=== PATIENT | male | born 1995 | race Caucasian/White ===

== ENCOUNTER 2023-09-03 11:20 | Emergency (ER) | payer OTHER, SELFPAY ==
[2023-09-03 11:31] VITALS: BMI 30.7
[2023-09-03 11:31] LABS: Glucose - Point of Care 575 mg/dl (70-99)
--- NOTE | 2023-09-03 11:37 | ED.GENMED ---
History of Present Illness
General
Chief Complaint: Blood Sugar Problem
Time Seen by Provider: 09/03/23 11:27
History of Present Illness
History of Present Illness:
28-year-old male with history of insulin-dependent diabetes, PTSD, OCD, and polysubstance abuse presents to the emergency department via EMS due to elevated blood sugar. He was apparently arrested this morning and his Accu-Chek read high. He does
endorse missing his dose of insulin today but notes that his Dexcom readings have been elevated over the past several days. Reports he has been compliant with his insulin. Endorses increased thirst and urination, denies any abdominal pain, nausea,
vomiting, or fevers. Denies any suicidal or homicidal ideation.
Past History
Past History
ED Past Medical History: IDDM, Psychiatric and Other (peripheral edema)
ED Past Surgical History: None
Patient has exhibited threatening behavior?: No
Social History
Tobacco: Smoker (1 PPD)
Alcohol: None
Drug: Marijuana, Cocaine (Crack cocaine) and Narcotics
Personal: Single
Living: with family
Employment: Not employed
Review of Systems
Review of Systems
Allergies reviewed?: Yes
All Other Systems: ROS reviewed and negative except as documented in HPI and ROS
Phy Exam
Physical Exam
Physical Exam:
GEN: Well appearing, NAD, WDWN
Eyes: PERRLA, EOMs intact, no scleral icterus
HENT: NCAT, oral mucosa dry, no JVD
Lungs: CTAB, no wheezes, rales, rhonchi, normal chest wall excursion
Cardiac: RRR, no M/R/G, no peripheral edema. Radial pulses 2+ bilat
Abdomen: S, NT, ND, NABS, no masses or hepatosplenomegaly
Neuro: AO x 3
MSK: No gross deformity or ecchymosis. No edema. No digital clubbing
Skin: No rashes, petechiae. Normal color, no pallor or jaundice.
Psych: Calm, cooperative, proper hygiene
Course
Orders/Labs/Results
Orders:
Orders
09/03/23 11:35
B-Hydroxybutyrate Urgent
Comment: ADD ON
Complete Blood Count/With Diff Urgent
Comprehensive Metabolic Panel Urgent
Venous Blood Gas Urgent
%Oxygen/Room Air: 99
Comment: Hyperglycemic
09/03/23 11:43
Add On- LAB Urgent
Tests Added?: beta hydroxybutyrate
Urinalysis Reflex To Culture Urgent
09/03/23 12:16
0.9% Sodium Chloride 1000 ml [Nss] 1,000 ml IV BOLUS
Insulin Aspart [NOVOLOG vial] 15 units SC NOW STA
Abnormal Lab Results
09/03/23 09/03/23
11:29 11:35
Abs Immat Gran (auto) 0.1 H 10^3/uL
(0-0.05)
Absolute Neuts (auto) 6.8 H 10^3/uL
(1.4-6.5)
Immature Gran % 0.6 H %
(0-0.5)
Lymphocytes % 19.8 L %
(20.5-51.1)
VBG pO2 72 H mmHg
(30-50)
VBG HCO3 20.6 L mmol/L
(22-27)
Sodium 133 L mmol/L
(135-145)
Carbon Dioxide 18 L mmol/L
(22-30)
Creatinine 0.6 L mg/dL
(0.7-1.3)
Glucose 619 H* mg/dl
(70-99)
Alkaline Phosphatase 185 H U/L
(38-126)
B-Hydroxybutyrate 1.83 H mmol/L
(0.02-0.27)
POC Glucose 575 H* mg/dl
(70-99)
09/03/23 11:35
09/03/23 11:35
Vital Signs
Initial and Last Documented VS:
Initial Vital Signs
Temp Pulse Resp BP Pulse Ox
98.3 F 74 18 121/85 99
09/03/23 11:38 09/03/23 11:38 09/03/23 11:38 09/03/23 11:38 09/03/23 11:38
Last Documented Vital Signs
Temp Pulse Resp BP Pulse Ox
98.3 F 74 18 121/85 99
09/03/23 11:38 09/03/23 11:38 09/03/23 11:38 09/03/23 11:38 09/03/23 11:38
MDM/Problems Addressed
MDM/Problems Addressed:
Patient not in DKA but certainly trending that way with the decrease in bicarbonate and elevated glucose. Unfortunately did receive only a small volume of IV fluids and no insulin. Unfortunately this patient eloped prior to any further treatment,
his father was updated
*Critical Care Note
Total Time (30-74mins, 75-104mins- exclusive of procedures): Not Applicable
Update Note
Update Note:
1218: Went to reassess pt, he eloped, IV catheter lying on bed with blood on sheets. Pt not located in restroom. Although his glucose is markedly elevated, no evidence of DKA although certainly trending that way with decreased serum bicarbonate. He
was alert and oriented fully, no grounds to contact PD
1225: Called pt's father Elio Vizcaino, updated regarding pt elopement
ED Attending Note
-
Portions of this chart may have been created with voice recognition software.� Occasional wrong word or��sound alike� substitutions may have occurred due to the inherent limitations of voice recognition software.
Discharge Plan
Departure
Patient Disposition: Elopement
Date of Disposition: 09/03/23
Time of Disposition: 12:23
Prescriptions:
No Action
alprazolam 1 mg Tablet
2 mg PO DAILY
Patient Comments:
04/27/23 Filled on 04/24/23 #90
sertraline 100 mg Tablet
100 mg PO DAILY
topiramate 200 mg Tablet
200 mg PO DAILY
topiramate 200 mg Tablet
100 mg PO DAILY@1400
topiramate 100 mg Tablet
100 mg PO HSPRN PRN (Reason: neurological condition )
insulin lispro [Humalog KwikPen Insulin] 100 unit/mL Insulin Pen
0 unit SC ACHS
Rx Instructions:
base on carbs per father bs [id number]
aripiprazole 5 mg Tablet
5 mg PO UD
Rx Instructions:
as per father take 5mg for 3 days then increase 10mg daily there after
alprazolam [Xanax] 1 mg Tablet
1 mg PO DAILY@1400
insulin glargine [Basaglar KwikPen U-100 Insulin] 100 unit/mL (3 mL) Insulin Pen
50 unit SC HS
methadone 10 mg/mL Concentrate
130 mg PO DAILY
Patient Comments:
[facility] [phone] [facility]
quetiapine 100 mg Tablet
100 mg PO .[id number] Qty: 0 0RF
Rx Instructions:
taper as planned prior
Referrals:
NONE,* [Family Provider] -
Interventions
Interventions:
*Risk Screen - Suicide Last Done: 09/03/23 11:38
*ED COVID-19 Vaccine History Last Done: 09/03/23 11:38
ED- Neurological Assessment Last Done: 09/03/23 11:38
[2023-09-03 11:38] VITALS: BP 121/85
[2023-09-03 11:41] LABS: Venous Blood Gas B.E. -5.2 mmol/L (-4 to +4); Venous Blood Gas HCO3 20.6 mmol/L (22-27); Venous Blood Gas O2 Sat % 96.4 %; Venous Blood Gas pCO2 40 mmHg (35-48); Venous Blood Gas pH 7.32 (7.32-7.43); Venous Blood Gas pO2 72 mmHg (30-50)
[2023-09-03 11:43] LABS: % Basophils 0.9 % (0-2); % Eosinophils 1.3 % (0-6); % Immature Granulocytes 0.6 % (0-0.5); % Lymphocytes 19.8 % (20.5-51.1); % Monocytes 4.4 % (1.7-9.3); Absolute Basophils 0.1 10^3/uL (0-0.2); Absolute Eosinophils 0.1 10^3/uL (0-0.7); Absolute Immature Granulocytes 0.1 10^3/uL (0-0.05); Absolute Lymphocytes 1.8 10^3/uL (1.2-3.4); Absolute Monocytes 0.4 10^3/uL (0.1-0.6); Absolute Neutrophils 6.8 10^3/uL (1.4-6.5); Hemoglobin 14.3 g/dL (13.0-18.0); Mean Corpuscular Hgb 28.5 pg (27.0-31.0); Mean Corpuscular Volume 83.8 fL (80.0-94.0); Mean Platelet Volume 8.6 fL (7.4-10.4); Nucleated Red Blood Cells % 0 % (-); Platelet Count 378 10^3/uL (130-400); Red Blood Cell Count 5.01 10^6/uL (4.70-6.10); Red Cell Dist. Width 11.9 % (11.5-14.5); White Blood Cell Count 9.3 10^3/uL (4.8-10.8)
[2023-09-03 12:11] LABS: ALT (SGPT) 18 U/L (0-50); AST (SGOT) 24 U/L (17-59); Albumin 4.2 g/dl (3.5-5.0); Alkaline Phosphatase 185 U/L (38-126); Blood Urea Nitrogen 19 mg/dl (9-20); Calcium 9.1 mg/dl (8.4-10.2); Carbon Dioxide 18 mmol/L (22-30); Chloride 105 mmol/L (98-107); Estimated Creatinine Clearance > 125 ml/min; Glucose 619 mg/dl (70-99); Potassium 4.1 mmol/L (3.5-5.1); Sodium 133 mmol/L (135-145); Total Bilirubin 0.5 mg/dl (0.2-1.3); Total Protein 7.1 g/dl (6.3-8.2); eGFR > 60.00
[2023-09-03 12:29] LABS: B-Hydroxybutyrate 1.83 mmol/L (0.02-0.27)
== END 2023-09-03 13:11 | disposition left against medical advice (07) ==
LOC: EMR 11:20
PROVIDERS: EMERGENCY PHYSICIAN Emergency Medicine
DX: R45.1 Restlessness and agitation (principal); E11.65 Type 2 diabetes mellitus with hyperglycemia; F17.210 Nicotine dependence, cigarettes, uncomplicated
CPT/HCPCS: 99283; 80053; 82010; 82805; 82962; 85025

== ENCOUNTER 2024-05-01 11:37 | Inpatient (IN) | payer OTHER, SELFPAY ==
[2024-05-01] VITALS (25 sets, daily range): BP systolic 108–150; BP diastolic 54–124; BMI 30.1
--- NOTE | 2024-05-01 08:25 | ED.GENMED ---
History of Present Illness
General
Chief Complaint: Abdominal Symptoms
Source: patient and records
Exam Limitations: none
Time Seen by Provider: 05/01/24 08:08
Nursing documentation reviewed up to this point in time: agreed with
History of Present Illness
History of Present Illness:
Patient is a 28-year-old male history of type 1 diabetes who presents to the emergency department stating he has ketones in his blood with nausea and vomiting for the past 2 to 3 days. Patient had been doing crack and meth during that time.
Patient is on chronic methadone maintenance. Patient takes NovoLog for his diabetes. Patient denies fever or chills. Patient denies any recent illness or injuries. Patient does have back pain and neck pain. This is more chronic in nature.
Patient denies fever but admits to chills.
Past History
Past History
ED Past Medical History: IDDM, Psychiatric and Other (peripheral edema)
ED Past Surgical History: None
Patient has exhibited threatening behavior?: No
Social History
Tobacco: Smoker (1 PPD)
Alcohol: None
Drug: Marijuana, Cocaine (Crack cocaine) and Narcotics
Personal: Single
Living: with family
Employment: Not employed
Review of Systems
Review of Systems
All Other Systems: ROS reviewed and negative except as documented in HPI and ROS
Constitutional: Reports fatigue and chills; Denies fever
EENT: Reports no symptoms
Respiratory: Reports no symptoms
Cardiac: Reports no symptoms
ABD/GI: Reports nausea, vomiting and anorexia
: Reports no symptoms
Musculoskeletal: Reports neck pain and back pain
Skin: Reports no symptoms
Neurological: Reports no symptoms
Hematologic/Lymphatic: Reports no symptoms
Phy Exam
Physical Exam
Physical Exam:
Physical Exam
General: significant distress, alert and appropriate, well nourished, dry mucous membranes
HENT: Normocephalic, supple with no lymphadenopathy, no thyromegaly
Eyes: Clear sclera, conjuctiva without injection
Heart: Regular rhythm and rate. No S3, S4. No murmur.
Lungs: No respiratory distress, no stridor, lung sounds clear and equal bilaterally
Abdomen: Soft, nontender, no organomegaly, no CVA tenderness, BS good
Neuro: Alert and oriented x 3, CN II - XII intact, no motor focality, no cerebellar dysfunction
Skin: no rash
Psychiatric: well kept. interactive and cooperative. Anxious
Extremities: No edema, cyanosis, tenderness
Course
Orders/Labs/Results
Orders:
Orders
05/01/24 08:20
B-Hydroxybutyrate Urgent
Complete Blood Count/With Diff Urgent
Comprehensive Metabolic Panel Urgent
Magnesium Urgent
Comment: ADD ON
Urinalysis Reflex To Culture Urgent
Date Specimen was Collected: 05/01/24
Time Specimen was Collected: 08:16
0.9% Sodium Chloride 1000 ml [Nss] 1,000 ml IV BOLUS
Diphenhydramine [Benadryl] 25 mg IV NOW STA
Prochlorperazine [Compazine] 10 mg IV NOW STA
05/01/24 08:21
Electrocardiogram (*1) Urgent
Reason for Study: Fatigue / Weakness
Cardiac Monitoring- Treatment ONCE
EKG- Treatment ONCE
05/01/24 09:37
Add On- LAB Urgent
Tests Added?: magnesium
Bedside Glucose- Treatment Q1H
IV Insert/Care/Rem.- Treatment PRN
05/01/24 09:45
Basic Metabolic Panel Q2H
05/01/24 11:45
Basic Metabolic Panel Q2H
05/01/24 13:45
Basic Metabolic Panel Q2H
Abnormal Lab Results
05/01/24
08:20
WBC 12.8 H 10^3/uL
(4.8-10.8)
Plt Count 431 H 10^3/uL
(130-400)
Abs Immat Gran (auto) 0.1 H 10^3/uL
(0-0.05)
Absolute Neuts (auto) 8.7 H 10^3/uL
(1.4-6.5)
Absolute Monos (auto) 0.8 H 10^3/uL
(0.1-0.6)
Immature Gran % 0.9 H %
(0-0.5)
Carbon Dioxide 10 L* mmol/L
(22-30)
Glucose 525 H* mg/dl
(70-99)
AST 77 H U/L
(17-59)
Alkaline Phosphatase 202 H U/L
(38-126)
Urine Ketones 3+ A
(Negative)
Urine Glucose 3+ A
(Negative)
B-Hydroxybutyrate > 6.00 H mmol/L
(0.02-0.27)
05/01/24 08:20
Vital Signs
Initial and Last Documented VS:
Initial Vital Signs
BP
148/82
05/01/24 08:07
Last Documented Vital Signs
Pulse Resp BP Pulse Ox
83 14 148/82 99
05/01/24 08:45 05/01/24 08:45 05/01/24 08:07 05/01/24 08:45
*Pulse Oximetry
Patient hypoxic: no
*EKG
Interpreted by ED Provider?: Yes
EKG Intrepretation Date: 05/01/24
EKG Intrepretation Time: 09:34
Interpretation: abnormal
Comparison EKG: changes noted
Heart Rate: 81
Rate: normal
Rhythm: sinus
[place]: normal axis
Interval: normal TX interval and long QT
QRS Pattern: normal QRS
Ischemia: no ischemia
*[employer] Student Coordinator Interpretation
Rate: normal
Interpretation: normal
Heart Rate: 80
Rhythm: sinus
*Critical Care Note
Total Time (30-74mins, 75-104mins- exclusive of procedures): 45 minutes
Update Note
Update Note:
Patient is extremely hostile to staff cursing them out. Patient was repeatedly asked not to curse. Patient is demanding to go home. Patient understands that he could due to his diabetic ketoacidosis. Patient still wants to leave.
Patient spoke with his father and is now wanting to stay. Patient will require second IV.
ED Attending Note
-
Portions of this chart may have been created with voice recognition software.� Occasional wrong word or��sound alike� substitutions may have occurred due to the inherent limitations of voice recognition software.
Discharge Plan
Departure
Patient Disposition: Admit
Date of Disposition: 05/01/24
Time of Disposition: 09:35
Admit to: ICU
Admit to doctor: Hospitalist
Presentation/result/management discussed w/ accepting MD/DO: Hospitalist
Patient with high blood pressure during this ER visit?: Yes
Condition: Serious
Covid-19: Not Applicable
Discharge Problem:
DKA, type 1
Instructions: [place] Diet, Diabetic Ketoacidosis (DC)
Prescriptions:
New
ondansetron 8 mg tablet,disintegrating
8 mg PO TID PRN (Reason: nausea and vomiting) Qty: 20 0RF
No Action
alprazolam 1 mg Tablet
2 mg PO DAILY
Patient Comments:
04/27/23 Filled on 04/24/23 #90
sertraline 100 mg Tablet
100 mg PO DAILY
topiramate 200 mg Tablet
200 mg PO DAILY
topiramate 200 mg Tablet
100 mg PO DAILY@1400
topiramate 100 mg Tablet
100 mg PO HSPRN PRN (Reason: neurological condition )
insulin lispro [Humalog KwikPen Insulin] 100 unit/mL Insulin Pen
0 unit SC ACHS
Rx Instructions:
base on carbs per father bs [id number]
aripiprazole 5 mg Tablet
5 mg PO UD
Rx Instructions:
as per father take 5mg for 3 days then increase 10mg daily there after
alprazolam [Xanax] 1 mg Tablet
1 mg PO DAILY@1400
insulin glargine [Basaglar KwikPen U-100 Insulin] 100 unit/mL (3 mL) Insulin Pen
50 unit SC HS
methadone 10 mg/mL Concentrate
130 mg PO DAILY
Patient Comments:
[facility] [phone] [facility]
quetiapine 100 mg Tablet
100 mg PO .[id number] Qty: 0 0RF
Rx Instructions:
taper as planned prior
Referrals:
NONE,* [Family Provider] -
Activity Restrictions/Additional Instructions:
Make sure to see your physician as soon as possible. You are welcome back here you are have the possibility of due to your diabetic ketoacidosis. Make sure to drink plenty of fluids and take your insulin as directed. Make sure to drink
plenty of fluids.
Interventions
Interventions:
*Risk Screen - Suicide Last Done: 05/01/24 08:12
*General Assessment Last Done: 05/01/24 08:12
*Neglect/Abuse Screening Last Done: 05/01/24 08:12
*ED COVID-19 Vaccine History Last Done: 05/01/24 08:11
Discharge Date and Time
Print Language: GERMAN
[2024-05-01] MEDS: BENADRYL 25 MG IV (08:28)
[2024-05-01] MEDS: NSS 1000 IV (08:29)
[2024-05-01] MEDS: COMPAZINE 10 MG IV (08:29)
[2024-05-01 08:42] LABS: % Basophils 0.9 % (0-2); % Eosinophils 1.6 % (0-6); % Immature Granulocytes 0.9 % (0-0.5); % Lymphocytes 22.6 % (20.5-51.1); Absolute Basophils 0.1 10^3/uL (0-0.2); Absolute Eosinophils 0.2 10^3/uL (0-0.7); Absolute Immature Granulocytes 0.1 10^3/uL (0-0.05); Absolute Lymphocytes 2.9 10^3/uL (1.2-3.4); Absolute Monocytes 0.8 10^3/uL (0.1-0.6); Absolute Neutrophils 8.7 10^3/uL (1.4-6.5); Hemoglobin 14.8 g/dL (13.0-18.0); Mean Corp Hgb Conc. 33.6 g/dL (33.0-37.0); Mean Corpuscular Hgb 30.1 pg (27.0-31.0); Mean Corpuscular Volume 89.6 fL (80.0-94.0); Mean Platelet Volume 8.4 fL (7.4-10.4); Nucleated Red Blood Cells % 0 % (-); Platelet Count 431 10^3/uL (130-400); Red Blood Cell Count 4.91 10^6/uL (4.70-6.10); Red Cell Dist. Width 12.9 % (11.5-14.5); White Blood Cell Count 12.8 10^3/uL (4.8-10.8)
[2024-05-01 09:16] LABS: Urine Albumin Negative (Neg - Trace); Urine Bilirubin Negative (Negative); Urine Character Clear (Clear); Urine Color Straw; Urine Glucose 3+ (Negative); Urine Ketone 3+ (Negative); Urine Leukocyte Negative (Negative); Urine Nitrite Negative (Negative); Urine Occult Blood Negative (Negative); Urine Urobilinogen Negative (Neg - 1+)
[2024-05-01 09:20] LABS: ALT (SGPT) 39 U/L (0-50); AST (SGOT) 77 U/L (17-59); Albumin 4.9 g/dl (3.5-5.0); Alkaline Phosphatase 202 U/L (38-126); B-Hydroxybutyrate > 6.00 mmol/L (0.02-0.27); Blood Urea Nitrogen 11 mg/dl (9-20); Calcium 9.7 mg/dl (8.4-10.2); Carbon Dioxide 10 mmol/L (22-30); Chloride 102 mmol/L (98-107); Estimated Creatinine Clearance > 125 ml/min; Glucose 525 mg/dl (70-99); Potassium 4.7 mmol/L (3.5-5.1); Sodium 139 mmol/L (135-145); Total Bilirubin 0.9 mg/dl (0.2-1.3); Total Protein 7.6 g/dl (6.3-8.2); eGFR > 60.00
[2024-05-01 09:53] LABS: Magnesium 1.8 mg/dl (1.6-2.3)
[2024-05-01] MEDS: ZOFRAN 4 MG IV (10:26)
[2024-05-01] MEDS: ATIVAN 1 MG IV (10:26)
--- NOTE | 2024-05-01 10:57 | PHANOTE ---
med rec note0 patient unable to answer questions at this time, patient has pharmacy records we used, plus pdmp. called office at [phone], also called office at [phone], spoke to danny office with limited
information they only fill 3 of patient medications. patient has no records of insulin being filled.
[2024-05-01] MEDS: 0.45% NACL with KCL 20 MEQ 1000 IV (11:10)
--- NOTE | 2024-05-01 11:10 | CM ---
Addendum entered by Ivette Martinez 05/01/24 12:05:
Here for DKA with severe metabolic ketoacidosis. Per hospialist's note: 'Suspect secondary to insulin noncompliance as well as nausea and vomiting related to substance abuse.'
Original Note:
CM reviewed chart. Attempted to assess elainetent, but he is thriving, yelling, screaming and crying due to pain.
--- NOTE | 2024-05-01 11:32 | HPS.HSE ---
Family Physician
-
Family Physician: * NONE
Chief Complaint
-
Pain all over and distress.
History of Present Illness
Patient is a 28 years old male with type 1 diabetes, polysubstance abuse disorder who presents to the emergency room after few days of using crack cocaine later developing persistent nausea and vomiting. Patient is not clear on his insulin
administration. In emergency room patient was found to be in distress with severe anxiety and agitation complaining of pain all over the body. Further evaluation consistent with severe metabolic acidosis secondary to DKA. Patient complains of
persistent nausea and vomiting, low oral intake. Denies any abdominal pain other than he complains of pain all over the body. Denies any respiratory or urinary symptoms.
Medical History
Past Medical History
Past Medical History: Reports IDDM and Other (Polysubstance abuse)
Past Surgical History: Reports None
Social History
Alcohol: None
Drug: Cocaine (Crack cocaine)
Personal: Single
Living: With Family
Family History
Family History: Not pertinent
Allergies / Home Medications
Allergies reflects when Allergies were last updated in [facility] [facility].
Home Medications with original date entered in [employer]
Allergy/Medication List:
Pending medication reconciliation
Review of Systems
-
A 12 point ROS was completed and negative except as noted: Yes
Physical Exam
Vital Signs
Vital Signs
Pulse Resp BP Pulse Ox
83 14 148/82 99
05/01/24 08:45 05/01/24 08:45 05/01/24 08:07 05/01/24 08:45
Physical Exam
General: Appears in Distress and Other (Disheveled)
HEENT: Atraumatic
Cardiac: S1/S2 and Regular Rhythm
GI: Soft and Non Tender
Genito-urinary: Deferred by me
Neuro: Awake, Alert, Oriented and AO x 3
Psych: Agitated and Anxious
Laboratory Results
-
05/01/24 08:20
Laboratory Results
Total Bilirubin 0.9 mg/dl (0.2-1.3) 05/01/24 08:20
AST 77 U/L (17-59) H 05/01/24 08:20
ALT 39 U/L (0-50) 05/01/24 08:20
Alkaline Phosphatase 202 U/L (38-126) H 05/01/24 08:20
Impression/Plan
-
IMPRESSION:
Diabetic ketoacidosis.
Type 1 diabetes
Polysubstance abuse including opiate abuse on methadone
PLAN:
Critically ill.
Admit to ICU.
DKA with severe metabolic ketoacidosis. Anion gap 27.
Suspect secondary to insulin noncompliance as well as nausea and vomiting related to substance abuse.
Start insulin drip
Hourly blood glucose monitoring.
Serial BMP monitoring for anion gap/potassium/phosphorus
Aggressive hydration with isotonic solution.
Update hemoglobin A1c
Diabetic nurse practitioner consultation.
Polysubstance abuse
Including opiate abuse on methadone
Crack cocaine.
At risk for withdrawal.
Currently agitated and anxious.
Continue methadone 130 mg daily.
Continue Klonopin with addition of IV lorazepam for severe agitation.
Continue Topamax and Abilify
Psychiatry consultation.
Full medication reconciliation pending
DVT prophylaxis/Levaquin
Full code.
[2024-05-01 11:38] LABS: Glucose - Point of Care 494 mg/dl (70-99)
[2024-05-01] MEDS: NOVOLIN R INSULIN INFUSION 100 IV ×2 (11:38→13:07)
[2024-05-01 12:07] LABS: Blood Urea Nitrogen 13 mg/dl (9-20); Calcium 9.8 mg/dl (8.4-10.2); Carbon Dioxide < 5 mmol/L (22-30); Chloride 106 mmol/L (98-107); Estimated Creatinine Clearance > 125 ml/min; Glucose 528 mg/dl (70-99); Potassium 4.9 mmol/L (3.5-5.1); Sodium 138 mmol/L (135-145); eGFR > 60.00
--- NOTE | 2024-05-01 12:28 | PTCARENOTE ---
Received pt from ED, pulled over to bed. Pt sleeping, difficult to arouse then drowsy and angry when awake. Poor historian, falling asleep between questions, unable to answer questions. Oriented to self and that he's in the hospital. VSS. RR 20's.
NSR on monitor. 99% on RA. LSCTA. 1/2 NS w/ 20mEq KCL runing at 250/hr. Insulin gtt A 9.8/hr, BS to be checked @ 1230, see MAR.
[2024-05-01 12:42] LABS: Glucose - Point of Care 369 mg/dl (70-99)
--- NOTE | 2024-05-01 12:42 | CON.INTV ---
Consultation
Consultation Request
Date/Time Consultation Requested: 05/01/2024 - 1206
Date/Time Consultation Performed: 05/01/2024 - 1233
Requesting Provider: Dr. Gregorio
Performing Provider: Dr. Alvares
Reason for Consultation: DKA
Medical History
-
Chief Complaint: Nausea/vomiting and feeling unwell
History of Present Illness:
28-year-old male active tobacco smoker with a past medical history of substance abuse disorder (opioids, amphetamines/methamphetamines), DM type I, history of Lyme disease, depression and anxiety who presents with nausea/vomiting and general
malaise. History obtained from the mother as patient is sedated when I saw him. He has been on a binge for the last 3 days using crack + meth. He has not been using his insulin. Per the patient's PCP (last seen on 03/14/[address] Tran) he is
supposed be on 55 units Lantus nightly and NovoLog prn (usually between 100-120 units daily), and also has a Mitesh continuous glucometer that he uses. He is noncompliant with his insulin as he does not always use it. He was following with
[facility] with endocrine but he is out of network and is trying to find a new legal services manager. He does have a history of fentanyl abuse + cocaine abuse. He has been in remission for over a year and goes to rehab. He apparently gets methadone 130 mg
daily through [facility]. Usually smokes 1 pack/day for the last 10-15 years however lately due to rehab he has been smoking 2-2.5 packs/day. He recently met somebody through his rehab who needed transportation and seems
that he relapsed because of this encounter. Per the mother, the patient has frequent outburst where he is either angry or he is crying. The patient has been out of contact with his mother for the last 3 days but then today had worsening
nausea/vomiting and then came here to the ER for further evaluation. In the ER he was afebrile to 98.8 �F, heart rate 78, breathing at 17 breaths/min, BP 140/82 and saturating 99% on room air. Labs showed leukocytosis of 12.8, Hb 14.8, platelet
count 431, serum bicarbonate level <5, anion gap 27, glucose 528 (via chemistry), AST 77, ALP 202, UA with +3 ketones with no signs of UTI, and beta-hydroxybutyrate elevated at >6. He was given IVF with 1 L NS 09%, Compazine, Zofran, Benadryl,
Ativan 1 mg, and then started on insulin drip with IVF with 1/2 NS-20 mEq KCl. He was transferred to the ICU for further care and rag willow operator services consulted for additional management/recommendations.
When I saw the patient he was resting in bed, sedated, arousable with tactile stimulation but not answering my questions. Mother, Trang, at bedside and all questions were answered. He is currently on insulin drip at 6 units/hr and 1/2-NS-20mEq KCl
at 150 cc/hr. Last POCT glucose was 369 at approximately 12:30 PM. The mother is very overwhelmed with the whole situation with her son as he has been struggling with drug use for many years, he was doing well for some time, even being sober for
over a year, however for the last 72 hours he has been on a continuous binge of cocaine, crack, and meth. He met somebody had his rehab recently who needed a ride and unfortunately relapsed after meeting this new person. He has not been using his
insulin although he does have a glucometer that he wears, and he is not always compliant with his insulin at home. He previously was addicted to fentanyl but now he takes methadone and this seems to be helping and he is doing well on that. She
swears that he does not drink alcohol at all. He does have a medical card for marijuana. He is currently smoking 2-2.5 packs/day but he has been smoking totally for about 15 years, predominantly 1 pack/day. She is requesting help at home as she
feels that she does not have enough assistance given her son's psychiatric and medical conditions. She denies any recent travel for him, recent sick contacts but her recent history of her son is limited as he was out of contact for the last 72
hours prior to arrival.
PMHx: DM type I, opioid use disorder on chronic methadone, major depressive disorder, history of Lyme disease, OCD
PSHx: Non-contributory
Past Medical History
Past Medical History: Other (Above as per HPI)
Past Surgical History: Other (Above as per HPI)
Social History
Tobacco: Smoker (Currently smoking 2-2.5 PPD, however mainly was smoking 1 PPD x 15 years)
Alcohol: None
Drug: Cocaine and Narcotics (Previous fentanyl; currently using meth)
Personal: Single
Living: With Family (Mother)
Family History
Family History: Cancer (Paternal grandmother: Breast cancer), Diabetes (Paternal grandfather), Hypertension (Father + paternal grandfather) and Other (Mother: Wiley's disease, depression, anxiety, vertigo; paternal grandfather: Small strokes)
Allergies / Home Medications
Allergies
Allergy/AdvReac Type Severity Reaction Status Date / Time
No Known Allergies Allergy Verified 05/01/24 08:11
Home Medications
�Medication �Instructions �Recorded �Confirmed �Last Taken �Type
alprazolam 1 mg tablet 2 mg PO DAILY anxiety 04/27/23 04/28/23 Unknown History
aripiprazole 5 mg tablet 10 mg PO DAILY Mental 04/27/23 04/28/23 Unknown History
Health/Anxiety
insulin lispro 100 unit/mL 0 unit SC ACHS Diabetes 04/27/23 04/28/23 Unknown History
subcutaneous pen (Humalog KwikPen
(U-100) Insulin)
sertraline 100 mg tablet 100 mg PO HS Mental Health/Anxiety 04/27/23 04/28/23 Unknown History
topiramate 100 mg tablet (Topamax) 300 mg PO HS 04/27/23 04/28/23 Unknown History
alprazolam 1 mg tablet (Xanax) 10 mg PO DAILY@1400 anxiety 04/28/23 04/28/23 Unknown History
insulin glargine 100 unit/mL (3 50 unit SC HS Diabetes 04/28/23 04/28/23 04/27/23 History
mL) subcutaneous pen (Basaglar
KwikPen U-100 Insulin)
methadone 10 mg/mL oral concentrate 130 mg PO DAILY Substance use 04/30/23 05/01/24 04/26/23 10:23 History
disorder
clonazepam 1 mg tablet 1 mg PO UD PRN withdraw symptoms 05/01/24 Unknown History
Review of Systems
-
Unable to Obtain full review of systems at this time due to: Acuity
Vitals / Labs / Diagnostic Testing
Vital Signs
Temp Pulse Resp BP Pulse Ox
98.8 F 96 32 150/84 99
05/01/24 12:16 05/01/24 11:45 05/01/24 11:45 05/01/24 11:03 05/01/24 13:36
Lab Data
05/01/24 08:20
Diagnostic Testing:
Physical Exam
-
HEENT: Normocephalic and Anicteric
Cardiovascular: S1/S2, Peripheral Edema (negative) and Other (Tachycardic)
Respiratory: Clear, Wheeze (negative), Rales (negative) and Rhonchi (negative)
GI: Soft, Non Distended, Non Tender and Normal Bowel Sounds
Neurology: Tremors (negative) and Other (Sedated)
Skin: Warm and Dry
General: Respiratory Distress (negative), Comfortable, Fever (negative) and Chills (negative)
Assessment
-
Assessment: 28-year-old male active tobacco smoker with a PMHx of substance abuse disorder (opioids, amphetamines/methamphetamines), DM type I, history of Lyme disease, depression and anxiety who presents with nausea/vomiting and general malaise.
History obtained from the mother as patient is sedated when I saw him. He has been on a binge for the last 3 days using crack + meth/cocaine. He has not been using his insulin. Per the patient's PCP (last seen on 03/14/[address] Tran) he is
supposed be on 55 units Lantus nightly and NovoLog prn (usually between 100-120 units daily), and also has a Mitesh continuous glucometer that he uses. He presents with nausea/vomiting and general malaise and found to be in severe DKA with metabolic
acidosis. He was given Ativan in the ER in addition to Compazine, Zofran and Benadryl. Started on insulin drip with IV fluids and then transferred to the ICU with rag willow operator services consulted for additional management/recommendations.
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
Impression:
#DM type II (HbA1C: 9.1 - 05/01/2024) c/b DKA likely due to medication noncompliance in the setting of ongoing drug use
#Metabolic acidosis with increased anion gap due to above
#Transaminitis with elevated AST + ALP
#Leukocytosis
#Thrombocytosis - likely reactive due to DKA
#Illicit drug use with methamphetamine/cocaine/crack abuse
#Tobacco use disorder (15-16 pack-year Hx)
#Chronic opioid use disorder on chronic methadone
#Hx of depression/anxiety
Plan:
- Continue with insulin drip with continuous maintenance fluids with half NS + KCl 20 mEq at 250 cc an hour
- Avoid hypoglycemia and continue with q1hr fingersticks while on insulin drip; keep BG>100 and treat hypoglycemia by stopping insulin gtt and giving D50 amp
- Once BG<300 then transition IVF to D5 1/2NS with 20MeQ KCl
- q4hr BMP, mag, phosphorus and avoid hypokalemia
- Replete electrolytes with K>4, Mg>2
- Trend AG and serum HCO3
- Check VBG and if pH is close to 7 then will start bicarb gtt as well and c/t trend blood gas; can stop bicarb drip once pH>7.25 and serum HCO3 is >14
- Once AG is closed x2 with BG<200 and serum HCO3 >18, then can bridge off insulin gtt with SQ lantus, and will start basal-bolus insulin dosing
- As long as patient can safely swallow without risk of aspiration, okay to continue with methadone and other PO meds however low threshold to make strict n.p.o. given that he is lethargic currently
- Continue aspiration precautions
- Will need ORNAMENT SETTER to eval him prior to starting PO diet, unless bedside RN feels he can swallow well per their eval; regardless, keep NPO except meds until DKA resolved and off insulin gtt
- Maintain SpO2 >90-94%; elevated HOB>30-45�
- If pt remains altered despite improved DKA, then check CT head, TSH/free T4 and consider neuro consult
- Given his leukocytosis and AMS, check CXR to assure no signs of aspiration
- UA appears clear with no signs of UTI
- Trend WBC and monitor for fever
- CXR done and appears clear --> follow up official read
- If pt spikes fever then start broad spectrum ABx after christensen-Cx
- He ultimately would benefit from a psychiatry consult given his ongoing drug use and Hx of depression, and patient's mother says he has outbursts of crying and anger
- Continue topamax, abilify and zoloft for now; may need a mood stabilizer vs atypical antipsychotic; will defer to psych once they are consulted
- Will likely experience withdrawal from the multiple medications that he is abusing; hence would ideally restart methadone (see above), but if he is too lethargic to restart then we will use prn fentanyl instead
- Continue supportive care otherwise while he recovers from his recent binge of amphetamine/methamphetamines
- Maintain MAP>65
- Apply nicotine patch
- Trend H/H and transfuse if needed to keep Hb>7g/dL; keep plt>20k, unless there is concern for bleeding then keep plt>50k
- prn nebulized bronchodilators - not currently bronchospastic
- Incentive spirometer encouraged 10x per hour for at least 4 hrs a day
- DVT ppx: LMWH
I discussed the patient's clinical status with the patient's mother, Trang, and answered all her questions. She remains overwhelmed and would like to speak with social work to see if there are any additional help options for home as the patient has
psychiatric + medical issues.
Critical care statement: A total of 43 minutes of critical care time was provided for this patient today. This includes management of unstable vital signs, evaluation of the patient at bedside, reviewing the patient's pertinent medical records
including radiographs, microbiology, laboratory evaluations, and discussion with primary team, consultants, pharmacy, nutrition, physical therapy, case management, charge nurse, critical care nursing, and respiratory therapy.
--- NOTE | 2024-05-01 12:55 | PN.DE.MGMTRT ---
Insulin Management
- -
05/01/2024 Diabetes Management Consult
Patient admitted 05/01 with co N & V and + ketones. PMH type 1 diabetes and polysubstance abuse, DKA. Prior to admission was ordered Basaglar 50 units @ hs with AC Humalog using I:CHO ratio and correction factor. A1C 9.1%, cr .7, eGFR > 60, GAP
18.
Patient is sleeping, unable to interview information obtained from patient mother at bedside. She states he is a recovering drug addict but recently relapsed, he was not taking his insulin. He has been gone for a few days and she has had no sleep.
She is tearful and tremulous. Attempted to reassure her my questions are just to clarify insulin and diabetes management. She states his father is supposed to provide insulin and CGM but he often does not. She states insulin was dropped off
today but no sensors. He usually uses the Mitesh and has a back up monitor (she is unsure of name).
Patient currently on insulin infusion @ 9.8 units per hour, GAP 18, cr .7 eGFR >60 Will follow for readiness to transition off of drip.
Diabetes History
- -
Type of Diabetes: 1
Pre-Admission Diabetes Regimen
05/01/24 05/01/24
08:20 10:49
Creatinine 0.7 0.7
Insulin Pump Settings
IP Diabetes Regimen
05/01/24 05/01/24 05/01/24
08:20 10:49 11:32
Glucose 525 H* 528 H*
POC Glucose 494 H*
05/01/24
12:31
Glucose
POC Glucose 369 H
Patient Education
[2024-05-01 13:28] LABS: Glycohemoglobin (HgbA1c) 9.1 % (4.0-5.6)
[2024-05-01 13:55] LABS: Blood Urea Nitrogen 13 mg/dl (9-20); Calcium 9.3 mg/dl (8.4-10.2); Carbon Dioxide < 5 mmol/L (22-30); Chloride 108 mmol/L (98-107); Estimated Creatinine Clearance > 125 ml/min; Glucose 361 mg/dl (70-99); Potassium 4.8 mmol/L (3.5-5.1); Sodium 142 mmol/L (135-145); eGFR > 60.00
[2024-05-01 14:01] LABS: Glucose - Point of Care 252 mg/dl (70-99)
[2024-05-01 14:27] LABS: Venous Blood Gas B.E. -23.3 mmol/L (-4 to +4); Venous Blood Gas HCO3 5.5 mmol/L (22-27); Venous Blood Gas O2 Sat % 97.4 %; Venous Blood Gas pCO2 20 mmHg (35-48); Venous Blood Gas pO2 92 mmHg (30-50)
[2024-05-01 14:28] LABS: Venous Blood Gas O2 Therapy 21%; Venous Blood Gas pH 7.05 (7.32-7.43)
[2024-05-01 14:38] LABS: Amphetamines Negative (Negative); Barbiturates Negative (Negative); Benzodiazepines Negative (Negative); Buprenorphine Negative (Negative); Cocaine Positive (Negative); Marijuana Positive (Negative); Methadone Positive (Negative); Methamphetamines Positive (Negative); Opiates Negative (Negative); Phencyclidine Negative (Negative); Tricyclic Antidepressants Negative (Negative)
[2024-05-01] MEDS: ABILIFY PO (14:38)
[2024-05-01 15:00] LABS: Glucose - Point of Care 209 mg/dl (70-99)
[2024-05-01] MEDS: D5/0.45%NSS with KCL 20 MEQ 1000 IV ×2 (15:08→22:12)
[2024-05-01] MEDS: NICODERM TRANSDERMAL 21 MG TRANSDERM (15:09)
[2024-05-01 15:18] LABS: Fentanyl, Urine Negative (Negative)
[2024-05-01] MEDS: SODIUM BICARBONATE 1150 MEQ IV (15:21)
[2024-05-01] MEDS: 0.45% NACL with KCL 20 MEQ IV (15:29)
[2024-05-01] MEDS: METHADONE 100 MG/10 ML 130 MG PO (15:43)
[2024-05-01 15:44] LABS: Glucose - Point of Care 166 mg/dl (70-99)
[2024-05-01 16:42] LABS: Glucose - Point of Care 168 mg/dl (70-99)
[2024-05-01 16:58] LABS: Blood Urea Nitrogen 11 mg/dl (9-20); Calcium 9.1 mg/dl (8.4-10.2); Carbon Dioxide < 5 mmol/L (22-30); Chloride 110 mmol/L (98-107); Estimated Creatinine Clearance > 125 ml/min; Glucose 174 mg/dl (70-99); Magnesium 1.9 mg/dl (1.6-2.3); Phosphorus 3.7 mg/dl (2.5-4.5); Sodium 142 mmol/L (135-145); eGFR > 60.00
[2024-05-01] MEDS: KLONOPIN 1 MG PO (16:59)
[2024-05-01 17:43] LABS: Glucose - Point of Care 168 mg/dl (70-99)
[2024-05-01 18:38] LABS: Glucose - Point of Care 195 mg/dl (70-99)
[2024-05-01 19:43] LABS: Glucose - Point of Care 199 mg/dl (70-99)
[2024-05-01 20:43] LABS: Glucose - Point of Care 215 mg/dl (70-99)
[2024-05-01 20:51] LABS: Blood Urea Nitrogen 8 mg/dl (9-20); Calcium 8.7 mg/dl (8.4-10.2); Carbon Dioxide 8 mmol/L (22-30); Chloride 109 mmol/L (98-107); Estimated Creatinine Clearance > 125 ml/min; Glucose 214 mg/dl (70-99); Magnesium 1.8 mg/dl (1.6-2.3); Phosphorus 2.6 mg/dl (2.5-4.5); Potassium 4.5 mmol/L (3.5-5.1); Sodium 137 mmol/L (135-145); eGFR > 60.00
--- NOTE | 2024-05-01 21:17 | PTCARENOTE ---
Received patient AAOx2, disoriented to time, drowsy. TILLMAN, mom at bedside. NS/ST 100-110s, BP stable, normothermic. Palpable radial and pedal pulses b/l. Lung sounds clear throughout, 97% on room air. Abdomen round, soft, hypoactive bowel sounds,
NPO. No BM since admission. Urinal to void. Abrasions on left hand, right foot third toe, left nostril and throughout extremities POA. PIVs patent, WNL. Insulin, bicarb, and IVF gtt ongoing per protocol. Q1H blood sugar checks ongoing, call hough
within reach.
[2024-05-01 21:42] LABS: Glucose - Point of Care 195 mg/dl (70-99)
[2024-05-01] MEDS: TOPAMAX 300 MG PO (22:14)
[2024-05-01 22:44] LABS: Glucose - Point of Care 218 mg/dl (70-99)
[2024-05-01 23:41] LABS: Glucose - Point of Care 232 mg/dl (70-99)
[2024-05-02] VITALS (14 sets, daily range): BP systolic 100–119; BP diastolic 55–71; BMI 30.6
[2024-05-02 00:44] LABS: Glucose - Point of Care 196 mg/dl (70-99)
--- NOTE | 2024-05-02 00:48 | PTCARENOTE ---
Patient assessment unchanged from previous, labs sent. Call hough within reach.
[2024-05-02 01:04] LABS: Blood Urea Nitrogen 7 mg/dl (9-20); Calcium 8.5 mg/dl (8.4-10.2); Carbon Dioxide 16 mmol/L (22-30); Chloride 108 mmol/L (98-107); Estimated Creatinine Clearance > 125 ml/min; Glucose 214 mg/dl (70-99); Magnesium 1.8 mg/dl (1.6-2.3); Phosphorus 1.7 mg/dl (2.5-4.5); Sodium 137 mmol/L (135-145); eGFR > 60.00
[2024-05-02] MEDS: SODIUM BICARBONATE 1150 MEQ IV (01:18)
[2024-05-02 01:44] LABS: Glucose - Point of Care 172 mg/dl (70-99)
[2024-05-02 02:45] LABS: Glucose - Point of Care 215 mg/dl (70-99)
[2024-05-02 03:57] LABS: Glucose - Point of Care 188 mg/dl (70-99)
[2024-05-02 04:02] LABS: Venous Blood Gas B.E. -4.6 mmol/L (-4 to +4); Venous Blood Gas HCO3 19.4 mmol/L (22-27); Venous Blood Gas O2 Sat % 99.9 %; Venous Blood Gas pCO2 32 mmHg (35-48); Venous Blood Gas pH 7.39 (7.32-7.43); Venous Blood Gas pO2 151 mmHg (30-50)
[2024-05-02 04:29] LABS: ALT (SGPT) 33 U/L (0-50); AST (SGOT) 44 U/L (17-59); Albumin 3.5 g/dl (3.5-5.0); Alkaline Phosphatase 142 U/L (38-126); Blood Urea Nitrogen 6 mg/dl (9-20); Calcium 8.7 mg/dl (8.4-10.2); Carbon Dioxide 17 mmol/L (22-30); Chloride 107 mmol/L (98-107); Estimated Creatinine Clearance > 125 ml/min; Glucose 196 mg/dl (70-99); Magnesium 1.7 mg/dl (1.6-2.3); Phosphorus 1.7 mg/dl (2.5-4.5); Potassium 3.4 mmol/L (3.5-5.1); Sodium 137 mmol/L (135-145); Total Bilirubin 0.6 mg/dl (0.2-1.3); Total Protein 6.1 g/dl (6.3-8.2); eGFR > 60.00
--- NOTE | 2024-05-02 04:30 | PTCARENOTE ---
Patient assessment unchanged from previous, gap closing, call hough within reach.
[2024-05-02] MEDS: D5/0.45%NSS with KCL 20 MEQ 1000 IV ×2 (04:33→11:07)
[2024-05-02 04:43] LABS: Glucose - Point of Care 172 mg/dl (70-99)
[2024-05-02 04:46] LABS: % Basophils 0.6 % (0-2); % Eosinophils 1.4 % (0-6); % Immature Granulocytes 0.6 % (0-0.5); % Lymphocytes 43.7 % (20.5-51.1); % Monocytes 6.7 % (1.7-9.3); Absolute Basophils 0.1 10^3/uL (0-0.2); Absolute Eosinophils 0.2 10^3/uL (0-0.7); Absolute Immature Granulocytes 0.1 10^3/uL (0-0.05); Absolute Lymphocytes 4.8 10^3/uL (1.2-3.4); Absolute Monocytes 0.7 10^3/uL (0.1-0.6); Absolute Neutrophils 5.2 10^3/uL (1.4-6.5); Hematocrit 35.2 % (39.0-52.0); Hemoglobin 12.5 g/dL (13.0-18.0); Mean Corp Hgb Conc. 35.5 g/dL (33.0-37.0); Mean Corpuscular Hgb 29.6 pg (27.0-31.0); Mean Corpuscular Volume 83.4 fL (80.0-94.0); Mean Platelet Volume 8.1 fL (7.4-10.4); Nucleated Red Blood Cells % 0 % (-); Platelet Count 336 10^3/uL (130-400); Red Blood Cell Count 4.22 10^6/uL (4.70-6.10); Red Cell Dist. Width 12.7 % (11.5-14.5)
[2024-05-02 05:44] LABS: Glucose - Point of Care 247 mg/dl (70-99)
[2024-05-02] MEDS: POTASSIUM PHOSPHATE 259.0909 MEQ IV (05:44)
[2024-05-02 06:30] LABS: Glucose - Point of Care 234 mg/dl (70-99)
[2024-05-02] MEDS: NICODERM TRANSDERMAL 21 MG TRANSDERM (07:14)
[2024-05-02] MEDS: ABILIFY 10 MG PO (07:14)
[2024-05-02] MEDS: METHADONE 100 MG/10 ML 130 MG PO (07:14)
[2024-05-02 07:40] LABS: Glucose - Point of Care 217 mg/dl (70-99)
--- NOTE | 2024-05-02 07:45 | PN.DE.MGMTRT ---
Insulin Management
- -
05/02/2024 Diabetes Management F/U:
Patient admitted 05/01 c/o N & V and + ketones due to DKA. PMH: T1DM, polysubstance abuse, and recurrent DKA.
Prior to admission was ordered Basaglar 50 units @ hs with AC Humalog using I:CHO ratio and correction factor. A1C 9.1%, Cr 0.7, eGFR > 60, GAP 18.
Patient is sleeping, unable to interview information obtained from patient mother at bedside. She states he is a recovering drug addict but recently relapsed, he was not taking his insulin. He has been gone for a few days and she has had no sleep.
She is tearful and tremulous. Attempted to reassure her my questions are just to clarify insulin and diabetes management. She states his father is supposed to provide insulin and CGM but he often does not. She states insulin was dropped off today
but no sensors. He usually uses the Mitesh and has a back up monitor (she is unsure of name).
Patient remains on insulin infusion @ 2.4 units per hour, GAP improved to 11 per last BMP done @ 07:39 this AM.
Cr 0.6 eGFR >60. Plan to transition off drip to SQ insulin if GAP <10 at next BMP.
Cont insulin infusion for now. Will follow for readiness to transition off of drip later today.
Diabetes History
- -
Type of Diabetes: 1
Pre-Admission Diabetes Regimen
05/01/24 05/01/24 05/01/24
08:20 10:00 10:49
Creatinine 0.7 Cancelled 0.7
05/01/24 05/01/24 05/01/24
11:45 12:00 12:55
Creatinine Cancelled Cancelled 0.7
05/01/24 05/01/24 05/01/24
13:36 14:00 16:30
Creatinine Cancelled Cancelled 0.7
05/01/24 05/01/24 05/01/24
17:36 20:24 21:36
Creatinine Cancelled 0.6 L Cancelled
05/02/24 05/02/24 05/02/24
00:44 03:52 04:00
Creatinine 0.5 L 0.6 L Cancelled
Lab Results
Hemoglobin A1c 9.1 % (4.0-5.6) H 05/01/24 12:55
Insulin Pump Settings
IP Diabetes Regimen
05/01/24 05/01/24 05/01/24
08:20 10:00 10:49
Glucose 525 H* Cancelled 528 H*
POC Glucose
05/01/24 05/01/24 05/01/24
11:32 11:45 12:00
Glucose Cancelled Cancelled
POC Glucose 494 H*
05/01/24 05/01/24 05/01/24
12:31 12:55 13:36
Glucose 361 H Cancelled
POC Glucose 369 H
05/01/24 05/01/24 05/01/24
13:50 14:00 14:39
Glucose Cancelled
POC Glucose 252 H 209 H
05/01/24 05/01/24 05/01/24
15:32 16:29 16:30
Glucose 174 H
POC Glucose 166 H 168 H
05/01/24 05/01/24 05/01/24
17:32 17:36 18:27
Glucose Cancelled
POC Glucose 168 H 195 H
05/01/24 05/01/24 05/01/24
19:32 20:24 20:32
Glucose 214 H
POC Glucose 199 H 215 H
05/01/24 05/01/24 05/01/24
21:30 21:36 22:32
Glucose Cancelled
POC Glucose 195 H 218 H
05/01/24 05/02/24 05/02/24
23:30 00:34 00:44
Glucose 214 H
POC Glucose 232 H 196 H
05/02/24 05/02/24 05/02/24
01:33 02:34 03:46
Glucose
POC Glucose 172 H 215 H 188 H
05/02/24 05/02/24 05/02/24
03:52 04:00 04:31
Glucose 196 H Cancelled
POC Glucose 172 H
05/02/24 05/02/24 05/02/24
05:33 06:19 07:28
Glucose
POC Glucose 247 H 234 H 217 H
Patient Education
--- NOTE | 2024-05-02 07:56 | PTCARENOTE ---
Rec'd care of patient at 0700. Patient drowsy; arousable to voice. Oriented x3. NSR on tele monitor. Rate in the 70-80's. Lung sounds cta. Pulse ox 96-97% on RA. +BS. No BM. Voiding via urinal. Scattered scabs observed on arms and legs from picking.
Patient asking when he can go home. Plan of care discussed. DKA protocol maintained at current time. NPO. Repeat BMP, Mag, Phos sent. Vitals stable. Mother at bedside.
[2024-05-02 08:14] LABS: Blood Urea Nitrogen 5 mg/dl (9-20); Calcium 8.8 mg/dl (8.4-10.2); Carbon Dioxide 19 mmol/L (22-30); Chloride 107 mmol/L (98-107); Estimated Creatinine Clearance > 125 ml/min; Glucose 212 mg/dl (70-99); Magnesium 1.7 mg/dl (1.6-2.3); Phosphorus 2.2 mg/dl (2.5-4.5); Potassium 3.6 mmol/L (3.5-5.1); Sodium 137 mmol/L (135-145); eGFR > 60.00
--- NOTE | 2024-05-02 08:25 | PTCARENOTE ---
Patient's father called to inform RN that the methadone clinic is closed on weekends. The concern is the patient will be discharged without coverage for the weekend. Per patient's father, the clinic is aware. The clinic requested the doses the
patient is receiving in hospital to be faxed over, in order to provide coverage prior to closing today. Will notify MD.
[2024-05-02 08:43] LABS: Glucose - Point of Care 252 mg/dl (70-99)
--- NOTE | 2024-05-02 09:29 | PTCARENOTE ---
Patient oob to chair. Steady on feet. Plan of care discussed. Next BMP due @ 1200. Possible transition off insulin gtt this afternoon. Dietary at bedside for education.
[2024-05-02 09:36] LABS: Glucose - Point of Care 214 mg/dl (70-99)
[2024-05-02] MEDS: MAGNESIUM OXIDE 500 MG PO (10:10)
[2024-05-02 10:53] LABS: Glucose - Point of Care 183 mg/dl (70-99)
[2024-05-02 11:40] LABS: Glucose - Point of Care 187 mg/dl (70-99)
[2024-05-02 11:59] LABS: Glucose - Point of Care 176 mg/dl (70-99)
--- NOTE | 2024-05-02 12:18 | CM ---
Addendum entered by Joellen Dang 05/02/24 14:25:
CM on floor to meet with patient and family, per nurse, left AMA.
Addendum entered by Joellen Dang 05/02/24 12:32:
CM received return call from Francesca, confirmed received fax and patients father was able to parts picker medications.
Original Note:
CM placed call to [facility] ([phone]), spoke with Francesca, needs dose verification for methadone, will fax to [phone] in order for patients father to parts picker dosing for weekend as clinic is closed. CM
placed call to facility to confirm fax was received, left voicemail.
Plan; likely discharge over weekend.
[2024-05-02 12:56] LABS: Glucose - Point of Care 189 mg/dl (70-99)
[2024-05-02 13:23] LABS: Blood Urea Nitrogen 4 mg/dl (9-20); Calcium 7.5 mg/dl (8.4-10.2); Carbon Dioxide 17 mmol/L (22-30); Chloride 112 mmol/L (98-107); Estimated Creatinine Clearance > 125 ml/min; Glucose 139 mg/dl (70-99); Magnesium 1.5 mg/dl (1.6-2.3); Phosphorus 1.8 mg/dl (2.5-4.5); Potassium 3.2 mmol/L (3.5-5.1); Sodium 140 mmol/L (135-145); eGFR > 60.00
--- NOTE | 2024-05-02 14:04 | W.PN.UPDATE ---
Update Note
Progress Note Update
Called by nursing that pt wants to leave AMA. Mother at bedside. Security also called. Pt signed AMA paperwork. He has capacity to leave and understands that he will likely go back into DKA, and understands the risks of leaving. He says he has
long acting insulin at his mom's that he will take. I signed the AMA paperwork, and he left in stable condition.
--- NOTE | 2024-05-02 14:08 | PTCARENOTE ---
Patient refusing 1330 blood sugar. Stating 'I'm going home.' Educated on risks of leaving AMA. Hcc Coders and Hospitalist notified. Patient educated on DKA, DM1 and importance of taking insulin. Patient refusing education. Telling RN he has long
acting insulin at home. Mother at bedside, stating patient may not go home with her. Patient escalating. Pacing in hallway. Security present. IV access and telemetry wires removed. Patient escorted out by security.
--- NOTE | 2024-05-02 14:10 | W.PN.INTV ---
Today's Communication / Plan
Recommendations
Continue insulin drip per protocol and D5 1/2 N/S with KCl 20 meq
Transition to SQ insulin later in the day if AG closed x2, BG<200, HCO3>18, DM GI ASST is aware of possible transition
Magnesium oxide 500mg single dose
Consulted psychiatry
Consulted case management
Continue methadone and nicotine patch
Continue to watch for any withdrawal symptoms
May advance diet as tolerated with aspiration precautions in place
Assessment
-
Assessment: 28-year-old male active tobacco smoker with a PMHx of substance abuse disorder (opioids, amphetamines/methamphetamines), DM type I, history of Lyme disease, depression and anxiety who presents with nausea/vomiting and general malaise.
History obtained from the mother as patient is sedated when I saw him. He has been on a binge for the last 3 days using crack + meth/cocaine. He has not been using his insulin. Per the patient's PCP (last seen on 03/14/[address] Tran) he is
supposed be on 55 units Lantus nightly and NovoLog prn (usually between 100-120 units daily), and also has a Mitesh continuous glucometer that he uses. He presents with nausea/vomiting and general malaise and found to be in severe DKA with metabolic
acidosis. He was given Ativan in the ER in addition to Compazine, Zofran and Benadryl. Started on insulin drip with IV fluids and then transferred to the ICU with lens coater services consulted for additional management/recommendations.
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
This is a late note. Patient was visited in the morning and labs were reviewed. Medical assessment and any necessary orders were made earlier at 9 AM.
Plan:
# DKA
On 4 units insulin drip - avoid hypoglycemia and continue with q1hr POC while on drip; keep BG>100
If hypoglycemic, stop insulin gtt and give D50
BG<300; is receiving D5 1/2NS with 20MeQ KCl @150 cc/hr-Adjust if necessary and continue while on drip
Cont to monitor BMP, mag, phosphorus q4hrs
QT prolonged on EKG-will replete electrolytes to keep P>2.5, Mg>2
pH>7.25 and serum HCO3 is >14; will discontinue sodium bicarbonate
Anion gap this a.m. is 11
Continue to trend AG and serum HCO3
If anion gap is closed on repeat labs at noon and BG<200, will transition to SQ lantus
Currently saturating well on room air without any respiratory distress, maintain SpO2 >90-94%
Can advance diet with aspiration precautions
#Chronic opioid use disorder on chronic methadone
Continue methadone and nicotine patch
COWS =0; no evident withdrawal symptoms on exam
# leukocytosis
Improving
UA clear with no signs of UTI
CXR shows no acute pathology
Trend WBC and monitor for fever
# History of depression
Psychiatric consulted
Continue topamax and abilify, hold zoloft given prolonged QT
# Thrombocytosis
Resolved
# DVT ppx
Lovenox
Given concerns of mother regarding access to insulin, consulted case management.
Subjective Dataa
Subjective Data
Date of Service:
Date of Service: May 02, 2024
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
Subjective:
Patient visited this morning at 8;30am.
Denies any chest pain, abdominal pain, nausea, vomiting. Patient denies any diaphoresis, fevers or chills. Denies any palpitations.
Review of Systems
General: Sweats (Negative), Chills (Negative) and Elevated Blood Sugar
Cardiopulmonary: Dyspnea (Negative) and Chest Pain (Negative)
GI: Abdominal Pain (Negative), Nausea (Negative), Vomiting (Negative) and Constipation (No bowel movement since admission)
Neuro: Headache (Negative) and Weakness (Negative)
Genitourinary: Dysuria (Negative)
Objective Data
Data Reviewed
Vital Signs / I&O / Oxygen:
Vital Signs
Temp Pulse Resp BP Pulse Ox
98.2 F 62 11 115/71 97
05/02/24 11:30 05/02/24 12:00 05/02/24 10:00 05/02/24 12:00 05/02/24 12:00
Intake and Output
05/01/24 05/02/24 05/03/24
06:59 06:59 06:59
Intake Total 5005.7 / 5323.4 1663.1 / 1663.1
Output Total 1950 / 2350 400 / 400
Balance 3055.7 / 2973.4 1263.1 / 1263.1
SaO2 97
Physical Exam
General: Comfortable and Fever (Negative)
HEENT: Normocephalic, Anicteric, Moist Mucous Membranes and Other (Pupils midsized-reactive to light)
Cardiovascular: S1-S2, Regular Rhythm, Murmur (Negative) and Peripheral Edema (Negative)
Respiratory: Clear and Non-Labored Respirations
GI: Soft, Distended (Mildly distended), Non Tender and Normal Bowel Sounds
Neurology: Alert, Oriented and Other (Drowsy-occasionally falls asleep while speaking to him)
Skin: Warm and Dry
Labs/Micro/Reports
Lab Data
05/02/24 03:52
05/02/24 11:51
== END 2024-05-02 14:05 | disposition left against medical advice (07) | DRG 638 ==
LOC: ICU 11:37
PROVIDERS: ADMITTING PHYSICIAN Internal Medicine; CONSULT PHYSICIAN Internal Medicine Critical Care Medicine; EMERGENCY PHYSICIAN Emergency Medicine
DX: E10.10 Type 1 diabetes mellitus with ketoacidosis without coma (principal); F11.20 Opioid dependence, uncomplicated; M54.2 Cervicalgia; M54.9 Dorsalgia, unspecified; R60.0 Localized edema; F17.210 Nicotine dependence, cigarettes, uncomplicated; F14.10 Cocaine abuse, uncomplicated; D72.829 Elevated white blood cell count, unspecified; F42.9 Obsessive-compulsive disorder, unspecified; D75.839 Thrombocytosis, unspecified; R74.01 Elevation of levels of liver transaminase levels; F32.9 Major depressive disorder, single episode, unspecified; F15.90 Other stimulant use, unspecified, uncomplicated; F41.9 Anxiety disorder, unspecified; Z53.29 Procedure and treatment not carried out because of patient's decision for other reasons; Z91.148 Patient's other noncompliance with medication regimen for other reason; Z86.19 Personal history of other infectious and parasitic diseases; Z79.4 Long term (current) use of insulin; Z80.3 Family history of malignant neoplasm of breast; Z83.3 Family history of diabetes mellitus; Z81.8 Family history of other mental and behavioral disorders; Z82.49 Family history of ischemic heart disease and other diseases of the circulatory system
CPT/HCPCS: 71045; 80048; 80053; 80306; 80307; 81003; 82010; 82805; 82962; 83036; 83735; 84100; 85025; 93005; 96361; 96374; 96375; 99291; J3480

== ENCOUNTER 2024-08-16 17:34 | Emergency (ER) | payer OTHER, SELFPAY ==
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
== END 2024-08-16 17:45 ==
LOC: EMR 17:34
PROVIDERS: EMERGENCY PHYSICIAN Student in an Organized Health Care Education/Training Program; PRIMARYCARE PHYSICIAN Family Medicine
DX: R45.1 Restlessness and agitation (principal); E11.9 Type 2 diabetes mellitus without complications; F17.200 Nicotine dependence, unspecified, uncomplicated; Z79.4 Long term (current) use of insulin
CPT/HCPCS: 99282

== ENCOUNTER 2024-08-19 14:18 | Inpatient (IN) | payer OTHER, SELFPAY ==
[2024-08-19] VITALS (13 sets, daily range): BP systolic 99–160; BP diastolic 64–123; BMI 29.8
[2024-08-19 11:42] LABS: Glucose - Point of Care 482 mg/dl (70-99)
--- NOTE | 2024-08-19 11:48 | ED.GENMED ---
History of Present Illness
General
Chief Complaint: Breathing Problem
Source: patient and other (Notes from [facility])
Time Seen by Provider: 08/19/24 11:34
History of Present Illness
History of Present Illness:
29-year-old male brought to the emergency room from [facility] for evaluation of elevated sugar, ketones in his urine. Patient has a history of type 1 diabetes for which she receives intermittent insulin. He cannot describe how often he
is getting his insulin stating 'whenever the half-way wants to give it to me'. Patient has had DKA previously. He was hospitalized here in April for DKA. Patient denies nausea or vomiting. He denies any fever.
Past History
Past History
ED Past Medical History: IDDM, Psychiatric and Other (peripheral edema)
ED Past Surgical History: None
Patient has exhibited threatening behavior?: No
Social History
Tobacco: Smoker (1 PPD)
Alcohol: None
Drug: Marijuana, Cocaine (Crack cocaine) and Narcotics
Personal: Single
Living: with family
Employment: Not employed
Phy Exam
Physical Exam
Physical Exam:
General: Awake, Alert, Oriented X3. No acute distress.
Vitals: Mildly tachypneic
Head: Atraumatic
Eyes: Pupils equal, EOMI
Throat: Airway intact, no exudates, dry mucosa
Neck: Trachea midline
Lungs: Clear and equal b/l
Heart: Regular rate, no murmurs
Abd: Soft, Nontender, No pulsatile mass
Neuro: Nonfocal
Skin: Warm, dry, no rash
Extremities: pulses equal b/l, no edema
Course
Orders/Labs/Results
Orders:
Orders
08/19/24 11:29
Electrocardiogram (*1) Urgent
Reason for Study: Shortness of Breath
EKG- Treatment ONCE
08/19/24 11:44
Complete Blood Count/With Diff Urgent
Comprehensive Metabolic Panel Urgent
Troponin I Urgent
Venous Blood Gas Urgent
%Oxygen/Room Air: 98/room air
08/19/24 11:47
0.9% Sodium Chloride 1000 ml [Nss] 1,000 ml IV BOLUS
08/19/24 12:49
Bedside Glucose- Treatment Q1H
IV Insert/Care/Rem.- Treatment PRN
08/19/24 12:53
Add On- LAB Urgent
Tests Added?: Beta-hydroxybuterate
08/19/24 12:55
Reg Insulin 100 Units/100 ml [Novolin R Insulin Infusion] 100 units in 100 ml IV NOW
08/19/24 13:00
KCl 20 Meq/0.9%Sodchl 1000 ml [NSS with KCL 20 MEQ] 20 meq in 1,000 ml IV 250 mls/hr
08/19/24 13:01
B-Hydroxybutyrate Routine
Comment: ADD ON
Basic Metabolic Panel Q2H
08/19/24 13:15
Admit/Transfer Patient As Directed
Co-Sign Provider:
Level of Care: Inpatient admission
Assign to:: ICU
Physician / Group: Richardy
Diagnosis: DKA
Reason for Hospitalization: Insulin drip
Expected length of stay greater than two midnights?: Yes
ELOS- Estimated Length of Stay in days: 3
I certify the patient meets the requirements for IP care: Yes
PRN Pain Medication Management As Directed
May give lesser potent ordered pain med per pt: Yes
preference::
Protocol:: Medication orders for pain may be administered in a
manner that supports deferring to patient preference
when the pt is:
- Requesting an ordered lesser potent pain medication.
Least to most potent pain medications are defined
as: acetaminophen < NSAID < tramadol < opioids
(morphine, oxycodone, hydromorphone).
- Requesting a lesser dose of the same medication IF
ORDERED.
- Requesting a less intrusive route of administration
if both routes are prescribed by the provider (PO <
IV).
08/19/24 13:23
Code Status As Directed
Resuscitation Status: Full Code
08/19/24 15:00
Basic Metabolic Panel Q2H
08/19/24 17:00
Basic Metabolic Panel Q2H
Abnormal Lab Results
08/19/24 08/19/24 08/19/24
11:40 11:44 13:03
WBC 15.0 H 10^3/uL
(4.8-10.8)
MCHC 32.9 L g/dL
(33.0-37.0)
Plt Count 430 H 10^3/uL
(130-400)
Abs Immat Gran (auto) 0.2 H 10^3/uL
(0-0.05)
Absolute Neuts (auto) 12.8 H 10^3/uL
(1.4-6.5)
Immature Gran % 1.0 H %
(0-0.5)
Neutrophils % 84.8 H %
(42.2-75.2)
Lymphocytes % 10.6 L %
(20.5-51.1)
VBG pH 7.22 L
(7.32-7.43)
VBG pCO2 23 L mmHg
(35-48)
VBG pO2 113 H mmHg
(30-50)
VBG HCO3 9.4 L mmol/L
(22-27)
Carbon Dioxide 6 L* mmol/L
(22-30)
Glucose 490 H* mg/dl
(70-99)
Alkaline Phosphatase 205 H U/L
(38-126)
POC Glucose 482 H* mg/dl 330 H mg/dl
(70-99) (70-99)
08/19/24 11:44
Vital Signs
Initial and Last Documented VS:
Initial Vital Signs
Temp Pulse Resp Pulse Ox
98.3 F 93 24 98
08/19/24 11:31 08/19/24 11:31 08/19/24 11:31 08/19/24 11:31
Last Documented Vital Signs
Temp Pulse Resp BP Pulse Ox
98.3 F 93 24 138/81 98
08/19/24 11:31 08/19/24 12:00 08/19/24 12:00 08/19/24 12:00 08/19/24 11:45
MDM/Problems Addressed
Differential Diagnosis Includes:
Hyperglycemia, DKA, viral syndrome
MDM/Problems Addressed:
Patient presents with elevated glucose, sensation of feeling short of breath having chest discomfort. Patient also having nausea and vomiting. Patient believes he is in DKA. He does not believe he has been receiving insulin in half-way on the
normal interval he would as an outpatient. Patient was noted to be somewhat tachycardic on arrival. His labs show an elevated white blood cell count likely just an acute phase reactant. His VBG confirms the presence of a metabolic acidosis with a
pH of 7.22, pO2 of 23 and a bicarb at 9. His chemistries show normal renal function, normal potassium but a elevated anion gap of 26. Insulin drip initiated. Maintenance fluids with potassium ordered. Patient already received 1 L bolus of normal
saline. After that bolus his heart rate is normal as is his blood pressure. Patient will be admitted to the hospitalist service.
*Pulse Oximetry
Patient hypoxic: no
*EKG
Interpreted by ED Provider?: Yes
Interpretation: normal
Heart Rate: 92
Rate: normal
Rhythm: sinus
[place]: normal axis
Interval: normal interval
QRS Pattern: normal QRS
Ischemia: no ischemia
*Lead Former Interpretation
Rate: normal
Interpretation: normal
Rhythm: sinus
*Critical Care Note
Total Time (30-74mins, 75-104mins- exclusive of procedures): 35 min
comment:
Critical care statement: A total of 40 minutes of critical care time was provided for this patient. This includes management of unstable vital signs, evaluation of the patient at bedside, reviewing the patient's pertinent medical records, discussion
with consultants, review of old EKGs and review of pertinent medical records. This time with separate from time utilized to perform the aforementioned documented procedures
ED Attending Note
-
Portions of this chart may have been created with voice recognition software.� Occasional wrong word or��sound alike� substitutions may have occurred due to the inherent limitations of voice recognition software.
Discharge Plan
Departure
Patient Disposition: Admit
Date of Disposition: 08/19/24
Time of Disposition: 12:53
Admit to: IMU
Presentation/result/management discussed w/ accepting MD/DO: Hospitalist
Condition: Serious
Discharge Problem:
DKA, type 1
Prescriptions:
No Action
sertraline 100 mg Tablet
150 mg PO HS
Patient Comments:
05/01/24-patient mental health clinic explain patient should be on 150mg capsules but pharmacy has 100mg daily
topiramate [Topamax] 100 mg Tablet
300 mg PO HS
clonazepam 1 mg Tablet
1 mg PO .TAPER PRN (Reason: withdraw symptoms)
Rx Instructions:
08/19/24: 3/2-3/4 1 mg BID; 08/20-08/22 0.5 mg BID; 08/23 and beyond 0.5mg HS
clonidine HCl 0.1 mg Tablet
0.1 mg PO .TAPER
Rx Instructions:
08/19/24: 0.1 mg BID 32-5; 0.1mg BID 6-08/22; 0.05mg BID 08/23 and beyond
loperamide 2 mg Capsule
2 mg PO TIDPRN PRN (Reason: loose stools)
ondansetron HCl 4 mg Tablet
4 mg PO TIDPRN PRN (Reason: nausea/vomiting)
acetaminophen-codeine [Tylenol-Codeine #3] 300-30 mg Tablet
2 tab PO .TAPER
Rx Instructions:
08/19/24: 3-08/20 2 tabs TID ; 08/21-08/22 2 tab BID; 08/23-08/24 1 tab BID; 08/25 an beyond 1 tab HS
aripiprazole [Abilify] 20 mg Tablet
20 mg PO DAILY
insulin glargine [Lantus Solostar U-100 Insulin] 100 unit/mL (3 mL) Insulin Pen
10 unit SC HS
Referrals:
[facility] [Family Provider] -
Interventions
Interventions:
*Risk Screen - Suicide Last Done: 08/19/24 11:31
*General Assessment Last Done: 08/19/24 11:31
*Neglect/Abuse Screening Last Done: 08/19/24 11:31
*ED- Fall Risk Assessment Last Done: 08/19/24 11:31
*ED COVID-19 Vaccine History Last Done: 08/19/24 11:31
ED- Cardiac Assessment Last Done: 08/19/24 11:31
ED- Pulmonary Assessment Last Done: 08/19/24 11:31
Discharge Date and Time
Print Language: SINHALA
[2024-08-19] MEDS: NSS 1000 IV (11:49)
[2024-08-19 11:54] LABS: Venous Blood Gas B.E. -16.3 mmol/L (-4 to +4); Venous Blood Gas HCO3 9.4 mmol/L (22-27); Venous Blood Gas O2 Sat % 99.4 %; Venous Blood Gas pCO2 23 mmHg (35-48); Venous Blood Gas pH 7.22 (7.32-7.43); Venous Blood Gas pO2 113 mmHg (30-50)
[2024-08-19 11:57] LABS: % Basophils 0.6 % (0-2); % Eosinophils 0.1 % (0-6); % Lymphocytes 10.6 % (20.5-51.1); % Monocytes 2.9 % (1.7-9.3); % Neutrophils 84.8 % (42.2-75.2); Absolute Basophils 0.1 10^3/uL (0-0.2); Absolute Immature Granulocytes 0.2 10^3/uL (0-0.05); Absolute Lymphocytes 1.6 10^3/uL (1.2-3.4); Absolute Monocytes 0.4 10^3/uL (0.1-0.6); Absolute Neutrophils 12.8 10^3/uL (1.4-6.5); Hematocrit 44.4 % (39.0-52.0); Hemoglobin 14.6 g/dL (13.0-18.0); Mean Corp Hgb Conc. 32.9 g/dL (33.0-37.0); Mean Corpuscular Hgb 29.4 pg (27.0-31.0); Mean Corpuscular Volume 89.5 fL (80.0-94.0); Mean Platelet Volume 8.2 fL (7.4-10.4); Nucleated Red Blood Cells % 0 % (-); Platelet Count 430 10^3/uL (130-400); Red Blood Cell Count 4.96 10^6/uL (4.70-6.10); Red Cell Dist. Width 12.5 % (11.5-14.5)
[2024-08-19 12:12] LABS: ALT (SGPT) 35 U/L (0-50); AST (SGOT) 33 U/L (17-59); Albumin 4.9 g/dl (3.5-5.0); Alkaline Phosphatase 205 U/L (38-126); Blood Urea Nitrogen 15 mg/dl (9-20); Calcium 9.6 mg/dl (8.4-10.2); Carbon Dioxide 6 mmol/L (22-30); Chloride 103 mmol/L (98-107); Estimated Creatinine Clearance > 125 ml/min; Glucose 490 mg/dl (70-99); Potassium 4.8 mmol/L (3.5-5.1); Sodium 137 mmol/L (135-145); Total Bilirubin 0.8 mg/dl (0.2-1.3); eGFR > 60.00
[2024-08-19 12:18] LABS: Troponin I < 0.012 ng/ml
[2024-08-19 13:04] LABS: Glucose - Point of Care 330 mg/dl (70-99)
[2024-08-19] MEDS: NOVOLIN R INSULIN INFUSION 100 IV (13:09)
[2024-08-19] MEDS: NSS with KCL 20 MEQ 1000 IV (13:25)
--- NOTE | 2024-08-19 13:25 | W.PN.UPDATE ---
Update Note
Progress Note Update
This note serves as an addendum to the H&P by district leader CARMINE Rose OROZCO
HPI
29M under custody of [facility] since 08/16/24 HX IDDM, DKS, polysustance abuse sent to ER for elevated BG and POS urine in ketones;
- Intermittent insulin.
- He cannot describe how often he is getting his insulin stating 'whenever the long-term wants to give it to me'.
Prior HX DKA previously.
He was hospitalized here in April for DKA.
ROS:
Denied CP
Denies nausea or vomiting.
Denies any fever.
PHX; see above
VS
08/19/24
11:31 08/19/24
11:31
Temp 98.3 F
Pulse 93
Resp Rate 24
SaO2 98
Oxygen Mode of Delivery Room air
Actual Weight 97 kg
PE
Gen:
General: Awake, Alert, Oriented X3. No acute distress.
Vitals: Mildly tachypneic
Head: Atraumatic
Eyes: Pupils equal, EOMI
Throat: Airway intact, no exudates, dry mucosa
Neck: Trachea midline
Lungs: Clear and equal b/l
Heart: Regular rate, no murmurs
Abd: Soft, Nontender, No pulsatile mass
Neuro: Nonfocal
Skin: Warm, dry, no rash
Extremities: pulses equal b/l, no edema
Laboratory Tests
08/19/24 08/19/24
11:40 11:44
WBC 15.0 H
VBG pH 7.22 L
VBG pCO2 23 L
VBG pO2 113 H
VBG HCO3 9.4 L
Creatinine 0.7
Alkaline Phosphatase 205 H
Troponin I < 0.012
POC Glucose 482 H*
EKG
NORMAL SINUS RHYTHM
CANNOT RULE OUT ANTERIOR INFARCT (CITED ON OR BEFORE 02-MAY-2024)
ABNORMAL ECG
WHEN COMPARED WITH ECG OF 02-MAY-2024 06:17,
NO SIGNIFICANT CHANGE WAS FOUND
Confirmed by STEF ABREU MD ([id number]) on 08/19/2024 11:55:40 AM
ASSESSMENT & PLAN
29M incarcerated at [facility] since 08/16/24 HX IDDM, DKA, polysubstance abuse sent to ER for elevated BG and POS urine in ketones;
DKA with AG MA of 19
Hypokalemia
Severe hypocarbia due to AG MA
Suspect intermittent compliance with Insulin during current circumstances
- NS 200/H
- Insulin gtt
- follow DKA protocol
- DM SAFETY ASSISTANT consult in AM
Substance use disorder
- no evidence of acute WDS
- last use of [facility] Cocaine 2 weeks ago
- currently incarcerated at [facility]
Suspected substance associated mood disorder
- on Abilify, clonazepam, sertraline
- c/w clonidine
- c/w Topamax
DVT Px: LMWH
Full code
ICU
--- NOTE | 2024-08-19 13:37 | HPS.HSE ---
Family Physician
-
Family Physician: Facility [facility]
Chief Complaint
-
Uncontrolled blood glucose
History of Present Illness
Patient is a 29 y/o male past medical history of type 1 diabetes mellitus, mood disorder and polysubstance abuse who presents with uncontrolled sugars. Patient has been incarcerated at [facility] since August 16. He reports
intermittent insulin use at home but unable to tell me how much/how frequently he has been getting insulin at the retirement. He denies nausea, vomiting or diarrhea. He denies fevers, sweats or chills.
Medical History
Past Medical History
Past Medical History: Reports Other
Additional Past Medical History:
Type I Diabetes Mellitus
Mood Disorder
Polysubstance Abuse
Past Surgical History: Reports None
Social History
Tobacco: Smoker (1.5 to 2 PPD)
Alcohol: None
Drug: Marijuana and Cocaine (Last usage about 2 weeks ago)
Family History
Family History: Not pertinent
Allergies / Home Medications
Allergies reflects when Allergies were last updated in [facility].
Home Medications with original date entered in [facility]
Allergy/Medication List:
Allergies
Allergy/AdvReac Type Severity Reaction Status Date / Time
No Known Allergies Allergy Verified 08/16/24 17:35
Home Medications
sertraline 100 mg tablet 150 mg PO HS Mental Health/Anxiety 04/27/23
topiramate 100 mg tablet (Topamax) 300 mg PO HS 04/27/23
clonazepam 1 mg tablet 1 mg PO .TAPER PRN withdraw symptoms 05/01/24
acetaminophen 300 mg-codeine 30 mg tablet 2 tab PO .TAPER 08/19/24
aripiprazole 20 mg tablet (Abilify) 20 mg PO DAILY 08/19/24
clonidine HCl 0.1 mg tablet 0.1 mg PO .TAPER 08/19/24
insulin glargine 100 unit/mL (3 mL) subcutaneous pen (Lantus Solostar U-100 Insulin) 10 unit SC HS 08/19/24
loperamide 2 mg capsule 2 mg PO TIDPRN PRN loose stools 08/19/24
ondansetron HCl 4 mg tablet 4 mg PO TIDPRN PRN nausea/vomiting 08/19/24
Review of Systems
-
A 12 point ROS was completed and negative except as noted: Yes
Constitutional: Denies Fever or Chills
Respiratory: Denies Cough or Trouble Breathing
Cardiac: Denies Chest Pain or Palpitations
Abdomen/GI: Denies Abdominal Pain, Nausea or Vomiting
Physical Exam
Vital Signs
Vital Signs
Temp Pulse Resp BP Pulse Ox
98.3 F 93 24 138/81 98
08/19/24 11:31 08/19/24 12:00 08/19/24 12:00 08/19/24 12:00 08/19/24 11:45
Physical Exam
General: Comfortable and Conversant
HEENT: NormoCephalic, Anicteric and Atraumatic
Respiratory: Clear and Non Labored Respirations
Cardiac: S1/S2 and Regular Rhythm
GI: Soft and Non Distended
Rectal: Deferred by Provider
Musculoskeletal: No Clubbing, No Cyanosis and No Edema
Skin: Warm and Dry
Neuro: Awake, Alert, Oriented and Nonfocal/grossly intact
Psych: Calm
Laboratory Results
-
08/19/24 11:44
Laboratory Results
Total Bilirubin 0.8 mg/dl (0.2-1.3) 08/19/24 11:44
AST 33 U/L (17-59) 08/19/24 11:44
ALT 35 U/L (0-50) 08/19/24 11:44
Alkaline Phosphatase 205 U/L (38-126) H 08/19/24 11:44
Troponin I < 0.012 ng/ml 08/19/24 11:44
Data Reviewed
-
Lab Data: Labs Reviewed by me
Impression/Plan
-
Diabetic Ketoacidosis
-Admit to ICU for insulin drip, and close glucose/electrolyte monitoring
-Continue insulin drip
-Continue IVFs
Polysubstance abuse
-No signs of active withdrawal
-Continue clonazepam, clonidine and Tylenol #3 tapers as outlined by [facility]
Mood Disorder
-Continue Abilify, Sertraline and Topamax
DVT proph: Lovenox
[2024-08-19 13:51] LABS: Blood Urea Nitrogen 15 mg/dl (9-20); Calcium 9.7 mg/dl (8.4-10.2); Carbon Dioxide 10 mmol/L (22-30); Chloride 102 mmol/L (98-107); Estimated Creatinine Clearance > 125 ml/min; Glucose 345 mg/dl (70-99); Potassium 4.5 mmol/L (3.5-5.1); Sodium 139 mmol/L (135-145); eGFR > 60.00
[2024-08-19 14:09] LABS: Glucose - Point of Care 231 mg/dl (70-99)
[2024-08-19 15:57] LABS: Blood Urea Nitrogen 14 mg/dl (9-20); Carbon Dioxide 13 mmol/L (22-30); Chloride 107 mmol/L (98-107); Estimated Creatinine Clearance > 125 ml/min; Glucose 145 mg/dl (70-99); Potassium 4.5 mmol/L (3.5-5.1); Sodium 140 mmol/L (135-145); eGFR > 60.00
--- NOTE | 2024-08-19 15:59 | CON.INTV ---
Consultation
Consultation Request
Date/Time Consultation Requested: 08/19/24 13:23
Date/Time Consultation Performed: 08/19/24 15:00
Requesting Provider: Ellen Reyes PA-C
Performing Provider: Dante Whaley MD; Michael Mcclendon DO (Resident)
Reason for Consultation: Diabetic Ketoacidosis
Medical History
-
Chief Complaint: 'Ketones'
History of Present Illness:
Mr. Vizcaino is a 29 year old male with a past medical history of Type 1 Diabetes Mellitus, polysubstance abuse disorder (opioids, amphetamines, nicotine), depression, anxiety, and Lyme's disease who is presenting from [facility]. When
asked what brought him in, the patient stated 'ketones'. Patient is overall, not a very reliable historian. Patient states that over past couple of days he has been feeling unwell, as if he can't breath, and urinating more than usual. The patient
was then evaluated by a medical professional at the longterm where he was told that he had elevated sugar and ketones in urine and sent to the emergency department. Patient notes that he has had similar episodes in the past, most recently in April
of 2023, when he was admitted here for DKA. Patient notes that this episode appears to be milder than the one in April, where he was more short of breath and had multiple episodes of vomiting. Patient denies any current nausea, vomiting, chest
pain, palpitations, or abdominal pain. The patient also notes that his original complaint of shortness of breath has subsided at the time of interview.
Past Medical History
Past Medical History: Other (Type 1 Diabetes Mellitus, polysubstance abuse disorder (opioids, amphetamines, nicotine), depression, anxiety, OCD and Lyme's disease)
Past Surgical History: None
Social History
Tobacco: Smoker
Alcohol: None
Drug: Marijuana, Cocaine (crack) and Narcotics
Personal: Single
Living: Long-Term
Family History
Family History: Reviewed & Not Pertinent
Allergies / Home Medications
Allergies
Allergy/AdvReac Type Severity Reaction Status Date / Time
No Known Allergies Allergy Verified 08/16/24 17:35
Home Medications
�Medication �Instructions �Recorded �Confirmed �Last Taken �Type
sertraline 100 mg tablet 150 mg PO HS Mental Health/Anxiety 04/27/23 08/19/24 Unknown History
topiramate 100 mg tablet (Topamax) 300 mg PO HS 04/27/23 08/19/24 Unknown History
clonazepam 1 mg tablet 1 mg PO .TAPER PRN withdraw 05/01/24 08/19/24 Unknown History
symptoms
acetaminophen 300 mg-codeine 30 mg 2 tab PO .TAPER 08/19/24 08/19/24 Unknown History
tablet
aripiprazole 20 mg tablet (Abilify) 20 mg PO DAILY 08/19/24 08/19/24 Unknown History
clonidine HCl 0.1 mg tablet 0.1 mg PO .TAPER 08/19/24 08/19/24 Unknown History
insulin glargine 100 unit/mL (3 10 unit SC HS 08/19/24 08/19/24 Unknown History
mL) subcutaneous pen (Lantus
Solostar U-100 Insulin)
loperamide 2 mg capsule 2 mg PO TIDPRN PRN loose stools 08/19/24 08/19/24 Unknown History
ondansetron HCl 4 mg tablet 4 mg PO TIDPRN PRN nausea/vomiting 08/19/24 08/19/24 Unknown History
Review of Systems
-
History Source: Patient
Constitutional: Fever (n)
Respiratory: Trouble Breathing (improved)
Cardiac: No Symptoms
Abdomen/GI: No Symptoms
: Frequency (improved)
Neuro: No Symptoms
Vitals / Labs / Diagnostic Testing
Vital Signs
Temp Pulse Resp BP Pulse Ox
98.3 F 86 29 105/78 98
08/19/24 11:31 08/19/24 15:15 08/19/24 15:15 08/19/24 15:01 08/19/24 15:15
Lab Data
08/19/24 11:44
Diagnostic Testing:
Laboratory Tests
08/19/24
11:44
VBG pH 7.22 L
VBG pCO2 23 L
VBG pO2 113 H
VBG HCO3 9.4 L
VBG O2 Sat (Tesha) 99.4
VBG Base Excess -16.3
Laboratory Tests
08/19/24
15:09
Sodium 140
Potassium 4.5
Chloride 107
Carbon Dioxide 13 L*
BUN 14
Creatinine 0.7
Estimated Creat Clear > 125
eGFR > 60.00
Glucose 145 H
Calcium 10.0
EKG:
NSR
WHEN COMPARED WITH ECG OF 02-MAY-2024 06:17,
NO SIGNIFICANT CHANGE WAS FOUND
Physical Exam
-
HEENT: Normocephalic and Anicteric
Cardiovascular: S1/S2, Regular Rhythm, Murmur (n), Rub (n) and Peripheral Edema (n)
Respiratory: Clear, Wheeze (n), Rales (n), Rhonchi (n), Non-Labored Respirations and Accessory Resp Muscle Use (n)
GI: Soft, Non Distended, Non Tender and Normal Bowel Sounds
Neurology: Awake, Alert and Oriented
Skin: Warm and Dry
General: Respiratory Distress (n), Comfortable, Pain (n) and Fever (n)
Assessment
-
Mr. Vizcaino is a 29 year old male with a past medical history of Type 1 Diabetes Mellitus, polysubstance abuse disorder (opioids, amphetamines, nicotine), depression and anxiety who presents from [facility] after medical
evaluation revealed hyperglycemia and ketonuria. Patient is a semi-unreliable historian and is unable to explain his insulin regimen. On inquiry of ECW, appears he was on Lantus 55U nightly, with Novolog PRN (usually 100-120U daily) in fall,
and supposed to follow up with Endocrinology. In the Emergency department, patient was afebrile and slightly tachypneic with an anion gap of 27. VBG showed metabolic acidosis (pCO@ 23, pO2 113, HCo3 9.4, base excess -16.3). The patient was admitted
to the intensive care unit on 08/19/24 for intensive monitoring while on an insulin drip.
Impression
Diabetic Ketoacidosis
- Glucose 490 on admission, started on insulin drip in emergency department, normalized over 5 hours to 97 (POC)
- Anion Gap of 28 on admission, serially checked and current gap is 20
Anion Gap Metabolic Acidosis Secondary to the Above
Leukocytosis
- WBC 15.0 on admission, likely a reactive leukocytosis in the setting of diabetic ketoacidosis
Thrombocytosis
- Likely reactive 2/2 diabetic ketoacidosis
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
Opioid Use Disorder (On Methadone)
Amphetamine Use Disorder
Cocaine Use Disorder
Tobacco Use Disorder
Major Depressive Disorder
Anxiety
Obsessive Compulsive Disorder
Plan:
Neurologic
RASS goal 0 to 1
Tylenol #3 2 tablet PO TID
Continue home dose psych meds
Cardiologic
None.
Respiratory
None. Out of Bed Early Mobility.
GI
NPO for now.
Follow up CMP for elevated liver enzymes.
Renal/
I/s Os, follow up BMPs.
ID
Monitor WBC.
Heme/Onc
Lovenox for DVT prophylaxis
Endocrine
Insulin Drip with continuous maintainence fluids
Avoid hypoglycemia. Continue with q1h POC glucose checks while on insulin drip
Keep blood sugar > 100; treat hypoglycemia with D50 amp
Q4h BMP until 2 closed gaps, HCO3 > 18, Glucose < 200
- Then can bridge to home insulin
Replete electrolytes to K>4, Mg>2
Diabetic Nurse Practitioner Consulted
Psych
Continue Home Medications
Data Reviewed
-
EKG: Tracing personally visualized and interpreted and Report reviewed by me
Labs: Labs reviewed by me and Discussed with Patient
Critical Care Time (in minutes): 42
Total Time Spent with Patient (in minutes): 25
[2024-08-19] MEDS: D5/0.45%NSS with KCL 20 MEQ 1000 IV ×2 (16:19→21:24)
[2024-08-19 16:24] LABS: Glucose - Point of Care 97 mg/dl (70-99)
[2024-08-19] MEDS: D5/0.45%NSS with KCL 20 MEQ IV (16:36)
[2024-08-19 17:38] LABS: Glucose - Point of Care 73 mg/dl (70-99)
[2024-08-19] MEDS: LOVENOX 40 MG SC (18:16)
[2024-08-19] MEDS: TYLENOL #3 2 TABLET PO ×2 (18:16→21:23)
[2024-08-19 18:24] LABS: Phosphorus 2.6 mg/dl (2.5-4.5)
--- NOTE | 2024-08-19 18:25 | PTCARENOTE ---
Pt admitted to ICU bed 3371 from ED on insulin gtt. BS 97 on arrival. IVF changed to D51/2NS w/KCl. IVF beeping frequently d/t IV location in AC. BS 73 at that time. Insulin gtt held per protocol. New IV placed and IVF infusing. Pt eating
dinner at this time. Pt denies pain or nausea. Lungs CTA. Sinus rhythm. Guards at bedside.
[2024-08-19 18:56] LABS: Glucose - Point of Care 119 mg/dl (70-99)
[2024-08-19 19:45] LABS: Glucose - Point of Care 233 mg/dl (70-99)
[2024-08-19] MEDS: CATAPRES 0.1 MG PO (19:47)
--- NOTE | 2024-08-19 20:00 | PTCARENOTE ---
Received pt via handoff. Pt AAOx3, able to TILLMAN and follow commands, slightly irritated and complaining that he wants to go home. NSR, palpable pulses, afebrile. 99% on RA, lungs sounds are clear. Positive bowel sounds. Pt voiding in the urinal. Skin
CDI. Gtts running see flowsheet. Pt handcuffed on right ankle. Guards and call hough at bedside.
[2024-08-19 20:44] LABS: Glucose - Point of Care 268 mg/dl (70-99)
[2024-08-19] MEDS: ZOLOFT 150 MG PO (21:22)
[2024-08-19] MEDS: TOPAMAX 300 MG PO (21:23)
[2024-08-19] MEDS: NICODERM TRANSDERMAL 21 MG TRANSDERM (21:24)
[2024-08-19] MEDS: KLONOPIN 1 MG PO (21:24)
[2024-08-19 21:33] LABS: Blood Urea Nitrogen 13 mg/dl (9-20); Calcium 9.2 mg/dl (8.4-10.2); Carbon Dioxide 18 mmol/L (22-30); Chloride 105 mmol/L (98-107); Estimated Creatinine Clearance > 125 ml/min; Glucose 266 mg/dl (70-99); Potassium 4.5 mmol/L (3.5-5.1); Sodium 136 mmol/L (135-145); eGFR > 60.00
[2024-08-19 21:39] LABS: Glucose - Point of Care 253 mg/dl (70-99)
[2024-08-19 22:44] LABS: Glucose - Point of Care 203 mg/dl (70-99)
[2024-08-19 23:44] LABS: Glucose - Point of Care 175 mg/dl (70-99)
[2024-08-20] VITALS (15 sets, daily range): BP systolic 52–131; BP diastolic 26–99; BMI 30.2
--- NOTE | 2024-08-20 00:11 | PTCARENOTE ---
All systems reassessed. Gtts running see flowsheet. Pt asleep, guards at bedside.
[2024-08-20 00:40] LABS: Glucose - Point of Care 174 mg/dl (70-99)
[2024-08-20 01:38] LABS: Glucose - Point of Care 137 mg/dl (70-99)
[2024-08-20 02:54] LABS: Glucose - Point of Care 122 mg/dl (70-99)
[2024-08-20] MEDS: D5/0.45%NSS with KCL 20 MEQ 1000 IV ×3 (03:02→13:25)
[2024-08-20 03:54] LABS: Venous Blood Gas B.E. -3.2 mmol/L (-4 to +4); Venous Blood Gas HCO3 22.7 mmol/L (22-27); Venous Blood Gas O2 Sat % 98.8 %; Venous Blood Gas pCO2 43 mmHg (35-48); Venous Blood Gas pH 7.33 (7.32-7.43); Venous Blood Gas pO2 92 mmHg (30-50)
--- NOTE | 2024-08-20 03:55 | PTCARENOTE ---
All systems reassessed, labs drawn and hygiene performed.
[2024-08-20 03:58] LABS: Glucose - Point of Care 99 mg/dl (70-99)
[2024-08-20 03:58] LABS: Venous Blood Gas O2 Therapy ROOM AIR
[2024-08-20 04:22] LABS: Hematocrit 36.1 % (39.0-52.0); Hemoglobin 12.2 g/dL (13.0-18.0); Mean Corp Hgb Conc. 33.8 g/dL (33.0-37.0); Mean Corpuscular Hgb 29.1 pg (27.0-31.0); Mean Corpuscular Volume 86.2 fL (80.0-94.0); Mean Platelet Volume 8.1 fL (7.4-10.4); Platelet Count 352 10^3/uL (130-400); Red Blood Cell Count 4.19 10^6/uL (4.70-6.10); Red Cell Dist. Width 12.3 % (11.5-14.5); White Blood Cell Count 10.2 10^3/uL (4.8-10.8)
[2024-08-20 04:50] LABS: Glucose - Point of Care 131 mg/dl (70-99)
[2024-08-20 04:57] LABS: Blood Urea Nitrogen 9 mg/dl (9-20); Calcium 9.6 mg/dl (8.4-10.2); Carbon Dioxide 20 mmol/L (22-30); Chloride 108 mmol/L (98-107); Estimated Creatinine Clearance > 125 ml/min; Glucose 88 mg/dl (70-99); Potassium 3.5 mmol/L (3.5-5.1); Sodium 141 mmol/L (135-145); eGFR > 60.00
[2024-08-20 04:58] LABS: Magnesium 1.8 mg/dl (1.6-2.3)
[2024-08-20 04:59] LABS: Blood Urea Nitrogen 9 mg/dl (9-20); Calcium 9.3 mg/dl (8.4-10.2); Carbon Dioxide 22 mmol/L (22-30); Chloride 111 mmol/L (98-107); Estimated Creatinine Clearance > 125 ml/min; Glucose 90 mg/dl (70-99); Potassium 3.5 mmol/L (3.5-5.1); Sodium 140 mmol/L (135-145); eGFR > 60.00
[2024-08-20 05:46] LABS: Glucose - Point of Care 205 mg/dl (70-99)
[2024-08-20 06:45] LABS: Glucose - Point of Care 257 mg/dl (70-99)
--- NOTE | 2024-08-20 06:48 | W.PN.HOSP.TC ---
Today's Communication/Plan
-
discharge
Assessment / Plan
Assessment / Plan
Physical Exam
General: Comfortable and Conversant
HEENT: NormoCephalic, Anicteric and Atraumatic
Respiratory: Clear and Non Labored Respirations
Cardiac: S1/S2 and Regular Rhythm
GI: Soft and Non Distended
Musculoskeletal: No Clubbing, No Cyanosis and No Edema
Skin: Warm and Dry
Neuro: AOx3 conversant coherent
Psych: Calm
29M type I DM mood d/o Polysubstance abuse from correction facility here for DKA
Diabetic Ketoacidosis
-ICU admit
-treated with insulin drip and IVFs
-DM PRINT JOURNALIST eval appreciated
-Anion Gap closed, patient tolerating diet, since transitioned to SubQ insulin
Polysubstance abuse
-No signs of active withdrawal
-Continue clonazepam, clonidine and Tylenol #3 tapers as outlined by [facility]
-Methadone resumed at 30 mg daily, to continue at 40 mg daily starting tomorrow
-Further mgmt as per provider at [facility]
Mood Disorder
-Continue Abilify, Sertraline and Topamax
DVT proph: Lovenox
Medically stable for discharge back to [facility] with outpatient follow up recommendations
Discussed with patient, nurse, and Senior C Software Engineer
Total Time Preparing Discharge __50 minutes including examination of the patient, summary of the hospital stay, instructions for continuing care to all relevant caregivers; and preparation of discharge records, prescriptions, and referral
forms if necessary.
Anticipated Discharge: Today
Subjective/Interval History
-
Date of Service: August 20, 2024
No acute distress resting comfortably in bed. Reports feeling well. Tolerated oral diet. Very eager to be discharged. Denies new acute issues including nausea/vomiting.
Objective Data
-
Labs:
Laboratory Results
08/19/24 08/20/24 08/20/24
21:08 03:44 03:44
WBC 10.2
Hgb 12.2 L
Hct 36.1 L
Plt Count 352
Sodium 136 141 140
Potassium 4.5 3.5
Chloride 105
Carbon Dioxide 18 L
BUN 13
Creatinine 0.6 L
Glucose 266 H
Calcium 9.2
08/20/24 08/20/24 08/20/24
03:44 03:44 03:44
WBC
Hgb
Hct
Plt Count
Sodium
Potassium 3.5
Chloride 108 H 111 H
Carbon Dioxide 20 L 22
BUN 9
Creatinine
Glucose
Calcium
08/20/24 08/20/24 08/20/24
03:44 03:44 03:44
WBC
Hgb
Hct
Plt Count
Sodium
Potassium
Chloride
Carbon Dioxide
BUN 9
Creatinine 0.6 L 0.6 L
Glucose 88 90
Calcium 9.6
08/20/24 08/20/24 08/20/24
03:44 08:00 12:00
WBC
Hgb
Hct
Plt Count
Sodium Pending Pending
Potassium Pending Pending
Chloride Pending Pending
Carbon Dioxide Pending Pending
BUN Pending Pending
Creatinine Pending Pending
Glucose Pending Pending
Calcium 9.3 Pending Pending
08/20/24
16:00
WBC
Hgb
Hct
Plt Count
Sodium Pending
Potassium Pending
Chloride Pending
Carbon Dioxide Pending
BUN Pending
Creatinine Pending
Glucose Pending
Calcium Pending
Vital Signs:
Vital Signs
Temp Pulse Resp BP Pulse Ox
98.2 F 78 19 97/50 99
08/20/24 03:21 08/20/24 06:30 08/20/24 06:30 08/20/24 05:00 08/19/24 23:01
I&O
08/18/24 08/19/24 08/20/24
06:59 06:59 06:59
Intake Total 3721.5 / 3721.5
Output Total 900 / 900
Balance 2821.5 / 2821.5
[2024-08-20 07:42] LABS: Glucose - Point of Care 205 mg/dl (70-99)
[2024-08-20] MEDS: CATAPRES 0.1 MG PO (08:38)
[2024-08-20] MEDS: ABILIFY 20 MG PO (08:38)
[2024-08-20] MEDS: KLONOPIN 0.5 MG PO (08:39)
[2024-08-20] MEDS: TYLENOL #3 2 TABLET PO ×2 (08:40→16:19)
[2024-08-20 08:45] LABS: Glycohemoglobin (HgbA1c) 9.6 % (4.0-5.6)
[2024-08-20 08:48] LABS: Glucose - Point of Care 239 mg/dl (70-99)
--- NOTE | 2024-08-20 09:00 | PTCARENOTE ---
Rec'd pt at 0800 awake alert and oriented resting in bed. Guards in room with pt and pts R ankle shackled to the bed. Pt initally this am angry and cursing- mostly at the intermediate guards as he is frustrated at the intermediate. Currently not aggressive
toward staff but just angry. Updated on plan of care as he initially wanted to 'get out of here and go back to the correctional facility'. Understands that he needs to stay for now and is not discharged. Denies pain. Skin is pink wm and dry. Respirs
are unlabored on RA with sats of 100%. Lungs are clear. Monitor SR. + pulses. No edema. ABd is soft with + BS. Denies nausea. Voiding yellow urine in the urinal. IV D5 1/2 NS + 20 Kcl infusing at 200 ml/hr along with Insulin gtt currently at 3
units/hr. Pt able to reposition himself. Call hough within reach. Watching TV
--- NOTE | 2024-08-20 09:30 | PTCARENOTE ---
Remains resting. Ate about 50% of breakfast. Labs resent. Diabetes coordinator updated on pt. Voiding yellow urine
[2024-08-20 09:48] LABS: Glucose - Point of Care 231 mg/dl (70-99)
[2024-08-20 10:26] LABS: Blood Urea Nitrogen 7 mg/dl (9-20); Calcium 9.4 mg/dl (8.4-10.2); Carbon Dioxide 17 mmol/L (22-30); Chloride 109 mmol/L (98-107); Estimated Creatinine Clearance > 125 ml/min; Glucose 232 mg/dl (70-99); Potassium 3.8 mmol/L (3.5-5.1); Sodium 139 mmol/L (135-145); eGFR > 60.00
[2024-08-20 10:52] LABS: Glucose - Point of Care 212 mg/dl (70-99)
--- NOTE | 2024-08-20 10:57 | PTCARENOTE ---
Brionna Garcia- diabetes coordinator here and aware of glucose results-plan to transition pt off of the Insulin gtt. Pt with varied emotions from being angry to apologetic, to feeling sorry for himself. Guards remain with pt. No other changes
[2024-08-20] MEDS: METHADONE 100 MG/10 ML 30 MG PO (11:41)
[2024-08-20] MEDS: LANTUS 0.15 UNITS SC (11:42)
[2024-08-20] MEDS: MAGNESIUM OXIDE 500 MG PO (11:47)
[2024-08-20 11:51] LABS: Glucose - Point of Care 202 mg/dl (70-99)
--- NOTE | 2024-08-20 11:52 | PTCARENOTE ---
Glucose at 1140 - 202. Insulin gtt remains at 3 units. Lantus 15units SQ given as goal is to transition off gtt. Methadone 30 mg po given. Pt ambulated with guards in attendance to the bathroom. Moved his bowel and CHG bath given.. Pt refused oral
care- states ' I have no teeth'. Resting back in bed. Cooperative but angry/tearful about his actions that got him into residential and wants to go home.
--- NOTE | 2024-08-20 11:56 | CM ---
CM following re: discharge planning.
Discussed in Rounds, reviewed pt's chart, met with pt and 2 guards at bedside.
Pt is a 29 year old male, admitted with primary dx of DKA. Pt is admitted from [facility] where he was since 08/16/24 and per guards, pt will return back to [facility] when medically stable.
[facility] nursing report: [phone]
Discharge instructions fax: [phone]
D/C plan: return back to [facility]. Guards to transport.
--- NOTE | 2024-08-20 12:42 | W.PN.INTV ---
Today's Communication / Plan
Recommendations
.
Assessment
-
Mr. Vizcaino is a 29 year old male with a past medical history of Type 1 Diabetes Mellitus, polysubstance abuse disorder (opioids, amphetamines, nicotine), depression and anxiety who presents from [facility] after medical
evaluation revealed hyperglycemia and ketonuria. Patient is a semi-unreliable historian and is unable to explain his insulin regimen. On inquiry of ECW, appears he was on Lantus 55U nightly, with Novolog PRN (usually 100-120U daily) in fall,
and supposed to follow up with Endocrinology. In the Emergency department, patient was afebrile and slightly tachypneic with an anion gap of 27. VBG showed metabolic acidosis (pCO@ 23, pO2 113, HCo3 9.4, base excess -16.3). The patient was admitted
to the intensive care unit on 08/19/24 for intensive monitoring while on an insulin drip.
Impression
Diabetic Ketoacidosis
- Glucose 490 on admission, started on insulin drip in emergency department, normalized over 5 hours to 97 (POC)
- Anion Gap of 28 on admission, serially checked and current gap is 13
- VBG has normalized (pH 7.33, pCO2 43 pO2 92 HCO3 22.7, Base Excess -3.2)
Anion Gap Metabolic Acidosis Secondary to the Above
Leukocytosis TREAD TUBER MACHINE OPERATOR (resolved)
- WBC 15.0 on admission, likely a reactive leukocytosis in the setting of diabetic ketoacidosis
- Resolved (10.2)
Thrombocytosis TREAD TUBER MACHINE OPERATOR (resolved)
- Likely reactive 2/2 diabetic ketoacidosis
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
Opioid Use Disorder (On Methadone)
Amphetamine Use Disorder
Cocaine Use Disorder
Tobacco Use Disorder
Major Depressive Disorder
Anxiety
Obsessive Compulsive Disorder
Plan:
Neurologic
RASS goal 0 to 1
Tylenol #3 2 tablet PO TID
Continue home dose psych meds
Cardiologic
None.
Respiratory
None. Out of Bed Early Mobility.
GI
Continue Regular Diet
Diabetic TECHNICIAN TERMINAL AND REPEATER for education
Renal/
I/s Os, follow up BMPs.
ID
Monitor WBC.
Heme/Onc
Lovenox for DVT prophylaxis
Endocrine
Can discontinue insulin drip and transition to sub Q once closed gaps, normal blood sugars and tolerating diet
Avoid hypoglycemia. Continue with q1h POC glucose checks while on insulin drip
Keep blood sugar > 100; treat hypoglycemia with D50 amp
Q4h BMP until 2 closed gaps, HCO3 > 18, Glucose < 200
- Then can bridge to home insulin
Replete electrolytes to K>4, Mg>2
Diabetic Nurse Practitioner Consulted
Psych
Continue Home Medications
Possible discharge vs downgrade to med/surg per primary team.
Subjective Dataa
Subjective Data
Date of Service:
Date of Service: August 20, 2024
Chief Complaint: Office Helper Follow Up
Subjective:
Patient seen and examined while resting comfortably in bed. Patient states he is feeling well, and better compared to yesterday. Denies any chest pain, dizziness, shortness of breath, abdominal pain, nausea, or vomiting. Insulin drip at 3U/hr at
time of examination. GAPs are closing and were 13 at time of examination. Bicarbonate was 17 at time of examination. Patient has tolerated his oral diet and inquiring about when he will be discharged.
Review of Systems
General: Fever (n), Chills (n), Satisfactory Appetite and Pain (n)
Cardiopulmonary: Dyspnea (n), Chest Pain (n) and Edema (n)
GI: Abdominal Pain (n), Nausea (n), Vomiting (n), Diarrhea (n) and Constipation (n)
Neuro: Headache (n)
Objective Data
Data Reviewed
Vital Signs / I&O / Oxygen:
Vital Signs
Temp Pulse Resp BP Pulse Ox
98.1 F 90 18 131/83 99
08/20/24 11:05 08/20/24 09:00 08/20/24 09:00 08/20/24 08:38 08/20/24 09:00
Intake and Output
08/19/24 08/20/24 08/21/24
06:59 06:59 06:59
Intake Total 3721.5 / 3925.5 1063 / 1063
Output Total 900 / 1500 1200 / 1200
Balance 2821.5 / 2425.5 -137 / -137
SaO2 99
Physical Exam
General: Respiratory Distress (n), Comfortable, Pain (n), Fever (n) and T Max (98.6)
HEENT: Normocephalic, Anicteric and Moist Mucous Membranes
Cardiovascular: S1-S2, Regular Rhythm, Murmur (n), Rub (n), Peripheral Edema (n) and Other (minimal left calf tenderness, on additional palpation, patient states he doesn't actually have pain there; negative Elissa's sign, no discoloration, no
swelling when compared to the contralateral lower extremity)
Respiratory: Clear, Wheeze (n), Crackles (n), Rhonchi (n), Non-Labored Respirations and Accessory Resp Muscle Use (n)
GI: Soft, Non Distended, Non Tender and Normal Bowel Sounds
Neurology: Awake, Alert, Oriented and No Motor Deficits
Skin: Warm, Dry and Good Color
Labs/Micro/Reports
Lab Data
08/20/24 03:44
Laboratory Tests
08/20/24
09:34
Sodium 139
Potassium 3.8
Chloride 109 H
Carbon Dioxide 17 L
BUN 7 L
Creatinine 0.5 L
Glucose 232 H
08/20/24
03:44
VBG pH 7.33
VBG pCO2 43
VBG pO2 92 H
VBG HCO3 22.7
VBG O2 Sat (Tesha) 98.8
VBG Base Excess -3.2
[2024-08-20 12:51] LABS: Glucose - Point of Care 181 mg/dl (70-99)
[2024-08-20] MEDS: NICODERM TRANSDERMAL 21 MG TRANSDERM (13:22)
[2024-08-20] MEDS: NOVOLOG FLEXPEN 10 UNITS SC ×2 (13:45→17:36)
--- NOTE | 2024-08-20 13:45 | PTCARENOTE ---
Per orders Insulin gtt turned off and IV fluids dc'd. Pts glucose is 186- Lunch tray here and pt given Novolog 10 units SQ per orders. Pt anxious to get back to the [facility] (so he can use his IPAD). Cooperative currently.
[2024-08-20 13:54] LABS: Glucose - Point of Care 186 mg/dl (70-99)
--- NOTE | 2024-08-20 14:23 | PN.DE.MGMTRT ---
Insulin Management
- -
08/20/2024 Diabetes Management Consult
Patient admitted 08/19 with DKA from [facility]. PMH type 1 diabetes, poly substance abuse (marijuana, crack cocaine, nicotine), anxiety, depression. A1C on arrival 9.6%. GAP 38. cr .5, eGFR > 60. Patient known to me from previous admission, was taking
50 units lantus @ hs with ICHO ratio of 1:10, correction 1:50. He was admitted to [facility] 08/16. I spoke to Chloe in the infirmary today who states they did not know his history so he was only given 10 units of lantus at HS no novolog. Contributing
to DKA. Chloe states she will notify provider at detention of insulin doses.
Patient is known to me from previous admissions, once he signed out AMA.
Patient is awake alert and oriented sitting on edge of bed. States he used to take 50 units of lantus @ HS with AC novolog using a carb ratio and correction factor.
GAP now < 10 times 2, will transition with 15 lantus, insulin infusion off 2 hours after lantus administered. Lantus 50 units @ hs with novolog 10 units AC with low corrective.
Discussed with nurse.
Diabetes History
- -
Type of Diabetes: 1
Pre-Admission Diabetes Regimen
08/19/24 08/19/24 08/19/24
15:09 17:00 21:08
Creatinine 0.7 Cancelled 0.6 L
08/20/24 08/20/24 08/20/24
03:44 03:44 08:28
Creatinine 0.6 L 0.6 L Cancelled
08/20/24 08/20/24 08/20/24
09:34 12:00 16:00
Creatinine 0.5 L Cancelled Cancelled
Lab Results
Hemoglobin A1c 9.6 % (4.0-5.6) H 08/20/24 03:44
Insulin Pump Settings
IP Diabetes Regimen
08/19/24 08/19/24 08/19/24
15:09 16:13 17:00
Glucose 145 H Cancelled
POC Glucose 97
08/19/24 08/19/24 08/19/24
17:27 18:44 19:33
Glucose
POC Glucose 73 119 H 233 H
08/19/24 08/19/24 08/19/24
20:33 21:08 21:28
Glucose 266 H
POC Glucose 268 H 253 H
08/19/24 08/19/24 08/20/24
22:32 23:33 00:29
Glucose
POC Glucose 203 H 175 H 174 H
08/20/24 08/20/24 08/20/24
01:27 02:42 03:44
Glucose 88
POC Glucose 137 H 122 H
08/20/24 08/20/24 08/20/24
03:44 03:46 04:39
Glucose 90
POC Glucose 99 131 H
08/20/24 08/20/24 08/20/24
05:35 06:34 07:31
Glucose
POC Glucose 205 H 257 H 205 H
08/20/24 08/20/24 08/20/24
08:28 08:36 09:34
Glucose Cancelled 232 H
POC Glucose 239 H
08/20/24 08/20/24 08/20/24
09:36 10:40 11:40
Glucose
POC Glucose 231 H 212 H 202 H
08/20/24 08/20/24 08/20/24
12:00 12:39 13:43
Glucose Cancelled
POC Glucose 181 H 186 H
08/20/24
16:00
Glucose Cancelled
POC Glucose
Meal type: Breakfast
Amount consumed: 50%
Patient Education
--- NOTE | 2024-08-20 15:00 | PTCARENOTE ---
Overall good appetite for lunch. Currently resting. States he is just tired. Glucose is 183. No other changes. Guards in with pt and L leg shackeled to the bed
[2024-08-20 15:13] LABS: Glucose - Point of Care 183 mg/dl (70-99)
--- NOTE | 2024-08-20 15:23 | W.DCSUMMARY ---
Discharge Summary
Discharge Data
Date of Admission: 08/19/24
Date of Discharge: 08/20/24
-
Pending Results: No
Discharge Plan
-
Patient Disposition: Senior Care
Discharge Diagnosis/Procedures: Diabetic Ketoacidosis
Condition: Fair
Diet: Diabetic, Carb Controlled
Activity: As tolerated
Driving Restrictions: As prior to admission
Bathing Restrictions: None
Blood Work: Please repeat BMP with a primary care provider in 1-2 days of discharge
Activity Restrictions/Additional Instructions:
Please follow up with a primary care provider in 1-2 days of discharge.
Lantus 50U bedtime and Novolog 10U before meals are recommended for better control diabetes and to prevent recurrence Diabetic Ketoacidosis (DKA).
Please take medications as prescribed/recommended and follow up with primary care provider and/or other healthcare provider involved in your care for refills and/or further adjustment to your medication regimen as necessary.
Referrals:
[facility] [Family Provider] -
Prescriptions:
New
insulin aspart U-100 100 unit/mL (3 mL) Insulin Pen
10 unit SC AC Qty: 15 0RF
Rx Instructions:
Hold if not eating meal
Continued
sertraline 100 mg Tablet
150 mg PO HS
Patient Comments:
05/01/24-patient mental health clinic explain patient should be on 150mg capsules but pharmacy has 100mg daily
topiramate [Topamax] 100 mg Tablet
300 mg PO HS
clonazepam 1 mg Tablet
1 mg PO .TAPER PRN (Reason: withdraw symptoms)
Rx Instructions:
08/19/24: 3/2-3/4 1 mg BID; 35-37 0.5 mg BID; 3 and beyond 0.5mg HS
clonidine HCl 0.1 mg Tablet
0.1 mg PO .TAPER
Rx Instructions:
08/19/24: 0.1 mg BID 3/2-35; 0.1mg BID 08/21-08/22; 0.05mg BID 08/23 and beyond
loperamide 2 mg Capsule
2 mg PO TIDPRN PRN (Reason: loose stools)
ondansetron HCl 4 mg Tablet
4 mg PO TIDPRN PRN (Reason: nausea/vomiting)
acetaminophen-codeine 300-30 mg Tablet
2 tab PO .TAPER
Rx Instructions:
08/19/24: 08/18-08/20 2 tabs TID ; 08/21-08/22 2 tab BID; 08/23-08/24 1 tab BID; 08/25 an beyond 1 tab HS
aripiprazole [Abilify] 20 mg Tablet
20 mg PO DAILY
Changed
insulin glargine [Lantus Solostar U-100 Insulin] 100 unit/mL (3 mL) Insulin Pen
50 unit SC HS Qty: 0 0RF
Discharge Orders:
Discharge Patient (As Directed); Ordered 08/20/24
Ordered By: Agusto Olivier
Discharge Date and Time
Print Language: MACEDONIAN
--- NOTE | 2024-08-20 16:25 | PTCARENOTE ---
Assessment overall is unchanged. Pt dozing but easily wakeful and cooperative. Pt for discharge around 1800 back to the correctional facility. No other changes
[2024-08-20] MEDS: NOVOLOG FLEXPEN-LOW RESISTANCE 2 UNITS SC (17:36)
[2024-08-20 17:46] LABS: Glucose - Point of Care 200 mg/dl (70-99)
--- NOTE | 2024-08-20 18:37 | PTCARENOTE ---
Pt discharged via wheelchair with guards from [facility]. Capped int removed from R hand prior to transport. No other changes in assessment
== END 2024-08-20 18:49 | DRG 638 ==
LOC: ICU 14:18
PROVIDERS: Nurse Practitioner Family; Physician Assistant Medical; ADMITTING PHYSICIAN Internal Medicine; ATTENDING PHYSICIAN Internal Medicine; CONSULT PHYSICIAN Internal Medicine; EMERGENCY PHYSICIAN Emergency Medicine
DX: E10.10 Type 1 diabetes mellitus with ketoacidosis without coma (principal); F11.20 Opioid dependence, uncomplicated; R60.0 Localized edema; F17.210 Nicotine dependence, cigarettes, uncomplicated; D72.829 Elevated white blood cell count, unspecified; E87.6 Hypokalemia; F32.9 Major depressive disorder, single episode, unspecified; F41.9 Anxiety disorder, unspecified; F42.9 Obsessive-compulsive disorder, unspecified; D75.839 Thrombocytosis, unspecified; F15.10 Other stimulant abuse, uncomplicated; F14.10 Cocaine abuse, uncomplicated; R74.8 Abnormal levels of other serum enzymes; Z79.4 Long term (current) use of insulin; Z91.148 Patient's other noncompliance with medication regimen for other reason
CPT/HCPCS: 80048; 80053; 82010; 82805; 82962; 83036; 83735; 84100; 84484; 85025; 85027; 93005; 96360; 96372; 99291